=== PATIENT | male | born 1980 | race Caucasian/White ===

== ENCOUNTER 2017-10-23 22:53 | Inpatient (IN) | payer MEDICAID ==
[~2017-10-23] VITALS: Ht 152.4 cm; Wt 46.2 kg
[2017-10-23] MEDS ORDERED: PROPOFOL 100 ML IV PRN (23:21)
[2017-10-23] MEDS ORDERED: PLEASE ENTER ALLERGIES MC SCH (23:30)
[2017-10-23] MEDS ORDERED: PHARMACY MAY ADJ FOR RENAL FX MC SCH (23:30)
[2017-10-23] MEDS ORDERED: VANCOMYCIN PER PHARMACY MC PRN (23:30)
[2017-10-23] MEDS ORDERED: FENTANYL PF 100 MCG/2ML IVPush PRN (23:30)
[2017-10-23] MEDS ORDERED: LIDOCAINE-MPF 1%, 2ML ENDO PRN (23:30)
[2017-10-23] MEDS ORDERED: PLEASE ENTER HEIGHT AND WEIGHT MC SCH (23:30)
[2017-10-23 23:38] LABS: MICROSCOPIC NOT IND
[2017-10-23] MEDS: NOREPINEPHRINE 4 MG in SODIUM CHLORIDE 0.9% 246 ML IV PRN (23:39)
[2017-10-23 23:40] LABS: CULTURE INDICATED? NO
[2017-10-23] MEDS ORDERED: PHARMACOKINETIC MONITORING MC PRN (23:45)
[2017-10-23] MEDS: MIDAZOLAM HCL 25 MG in SODIUM CHLORIDE 0.9% 245 ML IV PRN (23:48)
[2017-10-24] MEDS: VANCOMYCIN 800 MG in SODIUM CHLORIDE 0.9% 250 ML IV ONE ×2 (00:30→00:37)
[2017-10-24] MEDS: MEROPENEM 500 MG in SODIUM CHLORIDE 0.9% 100 ML IV SCH ×3 (00:36→23:04)
[2017-10-24] MEDS: HEPARIN 5,000 UNITS/ML, 1ML SQ SCH ×3 (00:41→16:24)
[2017-10-24 01:00] VITALS: BP 105/70
[2017-10-24] MEDS ORDERED: SODIUM CHLORIDE 0.9% 1,000 ML IV SCH (03:30)
[2017-10-24] MEDS ORDERED: SODIUM CHLORIDE 0.9%, 500ML IVBOLUS ONE (03:30)
[2017-10-24 04:00] VITALS: BP 100/66
[2017-10-24 04:37] LABS: MEAN CORPUSCULAR HEMOGLOBIN 34.2 pg (27.5-34.5); MEAN CORPUSCULAR HGB CONC 33.8 g/dL (33.2-36.2); RED BLOOD COUNT 2.56 x10^6/uL (4.38-5.82); RED CELL DISTRIBUTION WIDTH 15.6 % (9.4-14.8)
[2017-10-24 04:40] LABS: ANION GAP 9 mmol/L (5-15); CHLORIDE 117 mmol/L (98-107); CREATININE 0.41 mg/dL (0.7-1.3)
[2017-10-24 04:54] LABS: CALCIUM 5.8 mg/dL (8.5-10.1)
[2017-10-24] MEDS ORDERED: D5%-0.45% NACL 1,000 ML IV SCH (05:30)
[2017-10-24] MEDS ORDERED: SODIUM CHLORIDE 0.9% 1,000ML IVBOLUS ONE ×2 (05:30→14:30)
[2017-10-24] MEDS ORDERED: CALCIUM GLUCONATE 9.2 MEQ in SODIUM CHLORIDE 0.9% 100 ML IV ONE (05:30)
[2017-10-24] MEDS ORDERED: MAGNESIUM SULFATE 3 GM in SODIUM CHLORIDE 0.9% 100 ML IV ONE (05:30)
[2017-10-24 06:01] LABS: MD YES
[2017-10-24 06:05] LABS: MEAN PLATELET VOLUME 9.4 fL (7.4-10.4); PLATELET COUNT 63 x10^3/uL (130-400)
[2017-10-24 06:08] LABS: BAND#(MANUAL) 1.92 x10^3/uL; BANDS%(MANUAL) 17 % (0-7); LYMPH#(MANUAL) 2.83 x10^3/uL (1-3.4); LYMPHS% (MANUAL) 25 % (22-44); METAMYELOCYTES# (MANUAL) 0.57 x10^3/uL (0-0); METAMYELOCYTES% (MANUAL) 5 % (0-1); MONOS#(MANUAL) 0.79 x10^3/uL (0.3-2.7); MONOS% (MANUAL) 7 % (2-9); NRBC % (MANUAL) 1 % (0-1); SEGS% (MANUAL) 46 % (42-75)
[2017-10-24 06:09] LABS: ANISOCYTOSIS 1+
[2017-10-24 06:10] LABS: <PLATELET ESTIMATE> DECREASED; <PLT MORPHOLOGY> NORMAL PLT MORPH; PMNS WITH VACUOLES 1+; SMUDGE CELLS 1+
[2017-10-24 06:11] LABS: POLYCHROMASIA 1+
[2017-10-24] MEDS: NOREPINEPHRINE 4 MG in SODIUM CHLORIDE 0.9% 246 ML IV PRN ×2 (06:28→23:05)
[2017-10-24] MEDS: PANTOPRAZOLE 40 MG IV IV SCH (08:37)
[2017-10-24] MEDS: OSELTAMIVIR 6 MG/ML ORAL SUSP PO SCH ×2 (08:37→21:17)
[2017-10-24] MEDS: HYDROCORTISONE 100 MG INJ. IV SCH ×2 (10:38→17:49)
[2017-10-24 10:45] LABS: ALANINE AMINOTRANSFERASE 38 U/L (12-78); ALBUMIN 1.4 g/dL (3.4-5.0); ANION GAP 9 mmol/L (5-15); CALCIUM 6.3 mg/dL (8.5-10.1); CHLORIDE 117 mmol/L (98-107); CREATININE 0.57 mg/dL (0.7-1.3)
[2017-10-24 10:48] LABS: ALKALINE PHOSPHATASE 29 U/L (45-117); BILIRUBIN,TOTAL 0.2 mg/dL (0.2-1.0); TOTAL PROTEIN 4.6 g/dL (6.4-8.2)
[2017-10-24] MEDS ORDERED: MAGNESIUM SULFATE PMX 2GM/50ML 50 ML IVPB ONE (11:30)
[2017-10-24] MEDS: VANCOMYCIN 700 MG in SODIUM CHLORIDE 0.9% 100 ML IV SCH (13:52)
[2017-10-24] MEDS: MIDAZOLAM HCL 25 MG in SODIUM CHLORIDE 0.9% 245 ML IV PRN (15:19)
[2017-10-25 00:08] LABS: MEAN CORPUSCULAR HEMOGLOBIN 33.7 pg (27.5-34.5); MEAN CORPUSCULAR HGB CONC 33.5 g/dL (33.2-36.2); MEAN CORPUSCULAR VOLUME 100.4 fL (81-97); MEAN PLATELET VOLUME 10.1 fL (7.4-10.4); PLATELET COUNT 67 x10^3/uL (130-400); RED BLOOD COUNT 2.64 x10^6/uL (4.38-5.82)
[2017-10-25 00:34] LABS: MD YES
[2017-10-25 00:36] LABS: BAND#(MANUAL) 10.62 x10^3/uL; BANDS%(MANUAL) 47 % (0-7); LYMPH#(MANUAL) 2.03 x10^3/uL (1-3.4); LYMPHS% (MANUAL) 9 % (22-44); METAMYELOCYTES# (MANUAL) 0.23 x10^3/uL (0-0); METAMYELOCYTES% (MANUAL) 1 % (0-1); MONOS% (MANUAL) 4 % (2-9); SEG#(MANUAL) 8.81 x10^3/uL (1.8-6.8); SEGS% (MANUAL) 39 % (42-75)
[2017-10-25 00:38] LABS: ANISOCYTOSIS 1+; POLYCHROMASIA 1+
[2017-10-25 00:39] LABS: <PLATELET ESTIMATE> DECREASED; <PLT MORPHOLOGY> NORMAL PLT MORPH; PMNS WITH VACUOLES 1+
[2017-10-25] MEDS: MIDAZOLAM HCL 25 MG in SODIUM CHLORIDE 0.9% 245 ML IV PRN ×3 (00:56→17:57)
[2017-10-25] MEDS: HYDROCORTISONE 100 MG INJ. IV SCH ×3 (00:56→17:57)
[2017-10-25] MEDS: HEPARIN 5,000 UNITS/ML, 1ML SQ SCH ×4 (00:59→22:15)
[2017-10-25] MEDS ORDERED: D5%-0.45% NACL 1,000 ML IV SCH (01:30)
[2017-10-25] MEDS: VANCOMYCIN 700 MG in SODIUM CHLORIDE 0.9% 100 ML IV SCH ×2 (01:31→15:50)
[2017-10-25] MEDS: D5%-0.45% NACL 1,000 ML IV SCH (02:26)
[2017-10-25 04:37] LABS: MEAN CORPUSCULAR HEMOGLOBIN 33.6 pg (27.5-34.5); MEAN CORPUSCULAR HGB CONC 33.1 g/dL (33.2-36.2); MEAN CORPUSCULAR VOLUME 101.3 fL (81-97); MEAN PLATELET VOLUME 10.3 fL (7.4-10.4); PLATELET COUNT 60 x10^3/uL (130-400); RED BLOOD COUNT 2.38 x10^6/uL (4.38-5.82); RED CELL DISTRIBUTION WIDTH 16.1 % (9.4-14.8)
[2017-10-25 04:44] LABS: ALANINE AMINOTRANSFERASE 31 U/L (12-78); ALBUMIN 1.3 g/dL (3.4-5.0); ANION GAP 9 mmol/L (5-15); CALCIUM 6.7 mg/dL (8.5-10.1); CHLORIDE 117 mmol/L (98-107); CREATININE 0.74 mg/dL (0.7-1.3)
[2017-10-25 04:46] LABS: ALKALINE PHOSPHATASE 39 U/L (45-117); BILIRUBIN,TOTAL 0.3 mg/dL (0.2-1.0); TOTAL PROTEIN 4.5 g/dL (6.4-8.2)
[2017-10-25 05:37] LABS: MD YES
[2017-10-25 05:39] LABS: LYMPH#(MANUAL) 1.54 x10^3/uL (1-3.4); LYMPHS% (MANUAL) 8 % (22-44); METAMYELOCYTES# (MANUAL) 0.19 x10^3/uL (0-0); METAMYELOCYTES% (MANUAL) 1 % (0-1); MONOS#(MANUAL) 0.97 x10^3/uL (0.3-2.7); MONOS% (MANUAL) 5 % (2-9)
[2017-10-25 05:40] VITALS: BP 98/70
[2017-10-25 05:40] LABS: BAND#(MANUAL) 8.69 x10^3/uL; BANDS%(MANUAL) 45 % (0-7); SEG#(MANUAL) 7.91 x10^3/uL (1.8-6.8); SEGS% (MANUAL) 41 % (42-75)
[2017-10-25 05:41] LABS: ANISOCYTOSIS 1+; PMNS WITH VACUOLES 1+
[2017-10-25 05:42] LABS: <PLATELET ESTIMATE> DECREASED; <PLT MORPHOLOGY> NORMAL PLT MORPH
[2017-10-25] MEDS: OSELTAMIVIR 6 MG/ML ORAL SUSP PO SCH ×2 (09:21→20:33)
[2017-10-25] MEDS: PANTOPRAZOLE 40 MG IV IV SCH (09:21)
[2017-10-25 10:50] LABS: HIT RESULT NEGATIVE (NEGATIVE)
[2017-10-25] MEDS: MEROPENEM 500 MG in SODIUM CHLORIDE 0.9% 100 ML IV SCH ×2 (11:41→22:16)
[2017-10-25] MEDS ORDERED: SODIUM CHLORIDE 0.9% 1,000ML IVBOLUS ONE (12:00)
[2017-10-25] MEDS: CARBAMAZEPINE 100 MG/5 ML NG SCH ×2 (15:50→20:33)
[2017-10-25] MEDS ORDERED: INSULIN ASPART 100 UNITS/ML, PEN SQ-INSULIN SCH (16:00)
[2017-10-25] MEDS: INSULIN ASPART 100 UNITS/ML, PEN SQ-INSULIN SCH ×2 (16:01→20:33)
[2017-10-26] MEDS: MIDAZOLAM HCL 25 MG in SODIUM CHLORIDE 0.9% 245 ML IV PRN ×3 (00:43→14:56)
[2017-10-26] MEDS: HYDROCORTISONE 100 MG INJ. IV SCH ×3 (02:04→17:29)
[2017-10-26] MEDS: INSULIN ASPART 100 UNITS/ML, PEN SQ-INSULIN SCH ×4 (02:06→21:26)
[2017-10-26 03:40] VITALS: BP 111/93
[2017-10-26 05:06] LABS: ANION GAP 8 mmol/L (5-15); CALCIUM 6.9 mg/dL (8.5-10.1); CHLORIDE 117 mmol/L (98-107); MEAN CORPUSCULAR HEMOGLOBIN 34.1 pg (27.5-34.5); MEAN CORPUSCULAR HGB CONC 33.6 g/dL (33.2-36.2); MEAN CORPUSCULAR VOLUME 101.3 fL (81-97); RED BLOOD COUNT 2.34 x10^6/uL (4.38-5.82); RED CELL DISTRIBUTION WIDTH 15.7 % (9.4-14.8)
[2017-10-26 05:34] LABS: CREATININE 0.87 mg/dL (0.7-1.3); FOLATE LEVEL 4.4 ng/mL (3.1-17.5); TRIGLYCERIDES 240 mg/dL (50-200)
[2017-10-26 05:55] LABS: MD YES; MEAN PLATELET VOLUME 10.8 fL (7.4-10.4); PLATELET COUNT 64 x10^3/uL (130-400)
[2017-10-26 05:57] LABS: LYMPH#(MANUAL) 1.76 x10^3/uL (1-3.4); LYMPHS% (MANUAL) 9 % (22-44); METAMYELOCYTES% (MANUAL) 1 % (0-1); MONOS#(MANUAL) 0.39 x10^3/uL (0.3-2.7); MONOS% (MANUAL) 2 % (2-9)
[2017-10-26 05:58] LABS: BANDS%(MANUAL) 25 % (0-7); SEG#(MANUAL) 12.35 x10^3/uL (1.8-6.8); SEGS% (MANUAL) 63 % (42-75)
[2017-10-26 05:59] LABS: ANISOCYTOSIS 1+
[2017-10-26 06:00] LABS: <PLATELET ESTIMATE> DECREASED; <PLT MORPHOLOGY> NORMAL PLT MORPH; PMNS WITH VACUOLES 1+
[2017-10-26] MEDS: HEPARIN 5,000 UNITS/ML, 1ML SQ SCH ×3 (07:30→23:29)
[2017-10-26] MEDS: PANTOPRAZOLE 40 MG IV IV SCH (08:36)
[2017-10-26] MEDS: CARBAMAZEPINE 100 MG/5 ML NG SCH ×3 (08:37→21:26)
[2017-10-26] MEDS: OSELTAMIVIR 6 MG/ML ORAL SUSP PO SCH ×2 (08:37→21:27)
[2017-10-26] MEDS ORDERED: POTASSIUM CHLORIDE 40 MEQ in SODIUM CHLORIDE 0.9% 100 ML IV ONE (09:00)
[2017-10-26] MEDS: MEROPENEM 500 MG in SODIUM CHLORIDE 0.9% 100 ML IV SCH ×2 (11:07→23:29)
[2017-10-26] MEDS ORDERED: VANCOMYCIN 700 MG in SODIUM CHLORIDE 0.9% 100 ML IV SCH (16:00)
[2017-10-26] MEDS ORDERED: FUROSEMIDE 20 MG/2 ML IV ONE (17:00)
[2017-10-26] MEDS: VALPROATE SODIUM 250 MG/5 ML ORAL SOLN PO/NG SCH ×2 (17:32→21:27)
[2017-10-27] MEDS: MIDAZOLAM HCL 25 MG in SODIUM CHLORIDE 0.9% 245 ML IV PRN ×2 (02:08→21:11)
[2017-10-27] MEDS: HYDROCORTISONE 100 MG INJ. IV SCH ×3 (02:08→16:09)
[2017-10-27 04:00] VITALS: BP 86/55
[2017-10-27] MEDS: INSULIN ASPART 100 UNITS/ML, PEN SQ-INSULIN SCH ×4 (04:30→21:05)
[2017-10-27 05:30] LABS: CHLORIDE 118 mmol/L (98-107)
[2017-10-27 05:41] LABS: ANION GAP 10 mmol/L (5-15); CALCIUM 7.2 mg/dL (8.5-10.1); CREATININE 0.95 mg/dL (0.7-1.3)
[2017-10-27 05:42] LABS: ALANINE AMINOTRANSFERASE 24 U/L (12-78); ALBUMIN 1.5 g/dL (3.4-5.0); ALKALINE PHOSPHATASE 59 U/L (45-117); BILIRUBIN,TOTAL 0.4 mg/dL (0.2-1.0); TOTAL PROTEIN 5.1 g/dL (6.4-8.2)
[2017-10-27 06:13] LABS: MD YES; MEAN CORPUSCULAR HGB CONC 33.8 g/dL (33.2-36.2); MEAN CORPUSCULAR VOLUME 100.6 fL (81-97); PLATELET COUNT 94 x10^3/uL (130-400); RED BLOOD COUNT 2.53 x10^6/uL (4.38-5.82)
[2017-10-27 06:16] LABS: BAND#(MANUAL) 4.32 x10^3/uL; BANDS%(MANUAL) 24 % (0-7); LYMPH#(MANUAL) 3.96 x10^3/uL (1-3.4); LYMPHS% (MANUAL) 22 % (22-44); METAMYELOCYTES# (MANUAL) 0.54 x10^3/uL (0-0); METAMYELOCYTES% (MANUAL) 3 % (0-1); MONOS#(MANUAL) 0.36 x10^3/uL (0.3-2.7); MONOS% (MANUAL) 2 % (2-9); NRBC % (MANUAL) 1 % (0-1); SEG#(MANUAL) 8.82 x10^3/uL (1.8-6.8); SEGS% (MANUAL) 49 % (42-75)
[2017-10-27 06:18] LABS: <PLATELET ESTIMATE> DECREASED; ANISOCYTOSIS 1+; LARGE PLATELETS 1+; SMUDGE CELLS 1+
[2017-10-27 06:19] LABS: POLYCHROMASIA 1+
[2017-10-27] MEDS: HEPARIN 5,000 UNITS/ML, 1ML SQ SCH (07:30)
[2017-10-27] MEDS: OSELTAMIVIR 6 MG/ML ORAL SUSP PO SCH ×2 (07:52→21:01)
[2017-10-27] MEDS: CARBAMAZEPINE 100 MG/5 ML NG SCH ×3 (07:52→21:01)
[2017-10-27] MEDS: PANTOPRAZOLE 40 MG IV IV SCH (07:52)
[2017-10-27] MEDS: VALPROATE SODIUM 250 MG/5 ML ORAL SOLN PO/NG SCH ×3 (07:52→21:01)
[2017-10-27] MEDS ORDERED: MIDAZOLAM 1 MG/ML, 2ML ONE ×2 (09:12→09:32)
[2017-10-27] MEDS: CEFAZOLIN PMX 2GM/50ML 50 ML IVPB SCH ×2 (09:29→17:46)
[2017-10-27] MEDS ORDERED: MIDAZOLAM 1 MG/ML, 2ML IVPush ONE ×2 (10:00)
[2017-10-27] MEDS ORDERED: LIDOCAINE 4% TOPICAL SOLUTION 50 ML ONE (10:41)
[2017-10-28] MEDS: HYDROCORTISONE 100 MG INJ. IV SCH ×3 (01:10→17:00)
[2017-10-28] MEDS: CEFAZOLIN PMX 2GM/50ML 50 ML IVPB SCH ×3 (01:10→16:59)
[2017-10-28] MEDS: INSULIN ASPART 100 UNITS/ML, PEN SQ-INSULIN SCH ×4 (03:45→21:17)
[2017-10-28 04:00] VITALS: BP 119/82
[2017-10-28 04:20] LABS: ANION GAP 9 mmol/L (5-15); CALCIUM 7.1 mg/dL (8.5-10.1); CHLORIDE 117 mmol/L (98-107)
[2017-10-28 04:21] LABS: CREATININE 0.97 mg/dL (0.7-1.3)
[2017-10-28 05:37] LABS: MD YES; MEAN CORPUSCULAR HEMOGLOBIN 34.2 pg (27.5-34.5); MEAN CORPUSCULAR HGB CONC 34.2 g/dL (33.2-36.2); MEAN PLATELET VOLUME 10.2 fL (7.4-10.4); PLATELET COUNT 98 x10^3/uL (130-400); RED CELL DISTRIBUTION WIDTH 16.1 % (9.4-14.8)
[2017-10-28 05:40] LABS: BAND#(MANUAL) 0.76 x10^3/uL; BANDS%(MANUAL) 5 % (0-7); LYMPH#(MANUAL) 3.17 x10^3/uL (1-3.4); LYMPHS% (MANUAL) 21 % (22-44); METAMYELOCYTES# (MANUAL) 0.15 x10^3/uL (0-0); METAMYELOCYTES% (MANUAL) 1 % (0-1); MONOS% (MANUAL) 4 % (2-9); MYELOCYTES# (MANUAL) 0.15 x10^3/uL (0-0); MYELOCYTES% (MANUAL) 1 % (0-0); SEG#(MANUAL) 10.27 x10^3/uL (1.8-6.8); SEGS% (MANUAL) 68 % (42-75)
[2017-10-28 05:41] LABS: ANISOCYTOSIS 1+
[2017-10-28 05:42] LABS: <PLATELET ESTIMATE> DECREASED; <PLT MORPHOLOGY> NORMAL PLT MORPH; POLYCHROMASIA 1+
[2017-10-28 05:43] LABS: SMUDGE CELLS 1+
[2017-10-28 06:09] VITALS: BP 119/82
[2017-10-28] MEDS ORDERED: MAGNESIUM SULFATE PMX 2GM/50ML 50 ML IV ONE (08:00)
[2017-10-28] MEDS ORDERED: POTASSIUM CHLORIDE 10% 40 MEQ/30 ML UDC PO ONE (08:00)
[2017-10-28] MEDS: CARBAMAZEPINE 100 MG/5 ML NG SCH ×3 (08:03→21:16)
[2017-10-28] MEDS: VALPROATE SODIUM 250 MG/5 ML ORAL SOLN PO/NG SCH ×3 (08:03→21:17)
[2017-10-28] MEDS: PANTOPRAZOLE 40 MG IV IV SCH (08:03)
[2017-10-28] MEDS: OSELTAMIVIR 6 MG/ML ORAL SUSP PO SCH ×2 (08:03→21:16)
[2017-10-29] MEDS: HYDROCORTISONE 100 MG INJ. IV SCH ×3 (00:55→16:26)
[2017-10-29] MEDS: CEFAZOLIN PMX 2GM/50ML 50 ML IVPB SCH ×3 (00:55→18:04)
[2017-10-29] MEDS: INSULIN ASPART 100 UNITS/ML, PEN SQ-INSULIN SCH ×4 (03:00→21:27)
[2017-10-29 04:00] VITALS: BP 132/90
[2017-10-29 05:18] LABS: MEAN CORPUSCULAR HEMOGLOBIN 33.6 pg (27.5-34.5); MEAN CORPUSCULAR HGB CONC 33.7 g/dL (33.2-36.2); MEAN CORPUSCULAR VOLUME 99.8 fL (81-97); MEAN PLATELET VOLUME 9.3 fL (7.4-10.4); PLATELET COUNT 121 x10^3/uL (130-400); RED BLOOD COUNT 2.56 x10^6/uL (4.38-5.82); RED CELL DISTRIBUTION WIDTH 15.5 % (9.4-14.8)
[2017-10-29 05:21] LABS: ANION GAP 8 mmol/L (5-15); CALCIUM 7.4 mg/dL (8.5-10.1); CHLORIDE 116 mmol/L (98-107); CREATININE 0.76 mg/dL (0.7-1.3)
[2017-10-29 05:22] LABS: TRIGLYCERIDES 249 mg/dL (50-200)
[2017-10-29 05:41] LABS: MD YES
[2017-10-29 05:42] LABS: BAND#(MANUAL) 0.14 x10^3/uL; BANDS%(MANUAL) 1 % (0-7); LYMPH#(MANUAL) 1.81 x10^3/uL (1-3.4); LYMPHS% (MANUAL) 13 % (22-44); MONOS#(MANUAL) 1.25 x10^3/uL (0.3-2.7); MONOS% (MANUAL) 9 % (2-9); SEGS% (MANUAL) 77 % (42-75)
[2017-10-29 05:46] LABS: <PLATELET ESTIMATE> DECREASED; <PLT MORPHOLOGY> NORMAL PLT MORPH; ANISOCYTOSIS 1+; POLYCHROMASIA 1+
[2017-10-29 05:49] LABS: SMUDGE CELLS 1+
[2017-10-29] MEDS ORDERED: FUROSEMIDE 20 MG/2 ML IV ONE (09:00)
[2017-10-29] MEDS: ESOMEPRAZOLE 40 MG IV IVPush SCH (09:15)
[2017-10-29] MEDS: CARBAMAZEPINE 100 MG/5 ML NG SCH ×3 (09:15→21:26)
[2017-10-29] MEDS: OSELTAMIVIR 6 MG/ML ORAL SUSP PO SCH ×2 (09:15→21:26)
[2017-10-29] MEDS: VALPROATE SODIUM 250 MG/5 ML ORAL SOLN PO/NG SCH ×3 (09:15→21:26)
[2017-10-30] MEDS: HYDROCORTISONE 100 MG INJ. IV SCH ×2 (01:03→08:05)
[2017-10-30] MEDS: CEFAZOLIN PMX 2GM/50ML 50 ML IVPB SCH ×3 (01:03→17:45)
[2017-10-30 04:00] VITALS: BP 116/72
[2017-10-30] MEDS: INSULIN ASPART 100 UNITS/ML, PEN SQ-INSULIN SCH ×4 (04:10→21:00)
[2017-10-30 04:30] LABS: ANION GAP 8 mmol/L (5-15); CALCIUM 7.6 mg/dL (8.5-10.1); CHLORIDE 114 mmol/L (98-107); CREATININE 0.73 mg/dL (0.7-1.3)
[2017-10-30 07:21] LABS: MEAN CORPUSCULAR HEMOGLOBIN 33.9 pg (27.5-34.5); MEAN CORPUSCULAR HGB CONC 34.4 g/dL (33.2-36.2); MEAN CORPUSCULAR VOLUME 98.4 fL (81-97); MEAN PLATELET VOLUME 8.8 fL (7.4-10.4); PLATELET COUNT 191 x10^3/uL (130-400); RED BLOOD COUNT 2.26 x10^6/uL (4.38-5.82); RED CELL DISTRIBUTION WIDTH 15.4 % (9.4-14.8)
[2017-10-30 07:24] LABS: HEMOGRAM NOTE RECHECKED
[2017-10-30 07:28] LABS: MD YES
[2017-10-30 07:31] LABS: BAND#(MANUAL) 0.36 x10^3/uL; BANDS%(MANUAL) 3 % (0-7); LYMPHS% (MANUAL) 21 % (22-44); MONOS#(MANUAL) 1.55 x10^3/uL (0.3-2.7); MONOS% (MANUAL) 13 % (2-9); MYELOCYTES# (MANUAL) 0.12 x10^3/uL (0-0); MYELOCYTES% (MANUAL) 1 % (0-0); REACTIVE LYMPHS # (MANUAL) 0.12 x10^3/uL (0-0); REACTIVE LYMPHS % (MANUAL) 1 % (0-0); SEG#(MANUAL) 7.26 x10^3/uL (1.8-6.8); SEGS% (MANUAL) 61 % (42-75)
[2017-10-30 07:32] LABS: ANISOCYTOSIS 1+
[2017-10-30 07:33] LABS: <PLATELET ESTIMATE> ADEQUATE; <PLT MORPHOLOGY> NORMAL PLT MORPH; BASOPHILLIC STIPPLING 1+
[2017-10-30] MEDS: CARBAMAZEPINE 100 MG/5 ML NG SCH ×3 (10:33→20:40)
[2017-10-30] MEDS: VALPROATE SODIUM 250 MG/5 ML ORAL SOLN PO/NG SCH ×4 (10:33→20:41)
[2017-10-30] MEDS: ESOMEPRAZOLE 40 MG IV IVPush SCH (12:41)
[2017-10-30 14:51] VITALS: BP 141/93
[2017-10-30 21:33] VITALS: BP 155/100
[2017-10-31] VITALS (7 sets, daily range): BP systolic 134–178; BP diastolic 85–107
[2017-10-31] MEDS: CEFAZOLIN PMX 2GM/50ML 50 ML IVPB SCH ×3 (00:59→17:26)
[2017-10-31] MEDS: INSULIN ASPART 100 UNITS/ML, PEN SQ-INSULIN SCH ×4 (03:00→21:00)
[2017-10-31 05:52] LABS: MEAN CORPUSCULAR HEMOGLOBIN 34.1 pg (27.5-34.5); MEAN CORPUSCULAR HGB CONC 33.9 g/dL (33.2-36.2); MEAN CORPUSCULAR VOLUME 100.5 fL (81-97); PLATELET COUNT 306 x10^3/uL (130-400); RED BLOOD COUNT 2.28 x10^6/uL (4.38-5.82); RED CELL DISTRIBUTION WIDTH 14.8 % (9.4-14.8)
[2017-10-31 05:53] LABS: ANION GAP 7 mmol/L (5-15); CALCIUM 7.9 mg/dL (8.5-10.1); CHLORIDE 112 mmol/L (98-107)
[2017-10-31 05:54] LABS: CREATININE 0.58 mg/dL (0.7-1.3)
[2017-10-31 06:37] LABS: BASOPHILS # (AUTO) 0.03 x10^3/uL (0-0.1); BASOPHILS % (AUTO) 0 % (0-1); EOSINOPHILS # (AUTO) 0.11 x10^3/uL (0-0.4); EOSINOPHILS % (AUTO) 1 % (1-7); LYMPHOCYTES # (AUTO) 5.02 x10^3/uL (1-3.4); LYMPHOCYTES % (AUTO) 33 % (22-44); MD SCAN; MEAN PLATELET VOLUME 8.2 fL (7.4-10.4); MONOCYTES # (AUTO) 1.76 x10^3/uL (0.2-0.8); MONOCYTES % (AUTO) 12 % (2-9); NEUTROPHILS # (AUTO) 8.47 x10^3/uL (1.8-6.8); NEUTROPHILS % (AUTO) 55 % (42-75)
[2017-10-31] MEDS: LABETALOL 5MG/ML, 20ML IVPush PRN (10:02)
[2017-10-31] MEDS: ESOMEPRAZOLE 40 MG IV IVPush SCH (10:08)
[2017-10-31] MEDS: VALPROATE SODIUM 250 MG/5 ML ORAL SOLN PO/NG SCH ×3 (10:30→21:13)
[2017-10-31] MEDS: CARBAMAZEPINE 100 MG/5 ML NG SCH ×3 (10:30→21:13)
[2017-10-31] MEDS ORDERED: PHEN125O PO (10:50)
[2017-10-31] MEDS ORDERED: CARB100O7 PO (10:50)
[2017-10-31] MEDS ORDERED: PHEN50TA PO (10:53)
[2017-10-31] MEDS ORDERED: VALP500S PO (10:54)
[2017-10-31] MEDS ORDERED: VALPROATE SODIUM PO SCH (16:00)
[2017-10-31] MEDS ORDERED: CARBAMAZEPINE 300 MG PO SCH (16:00)
[2017-10-31] MEDS ORDERED: LORazepam 2 MG/ML, 1ML ONE (18:05)
[2017-10-31] MEDS ORDERED: LORazepam 2 MG/ML, 1ML IVPush ONE (18:30)
[2017-10-31] MEDS: PHENYTOIN 50 MG TAB.CHEW PO SCH (21:14)
[2017-11-01] VITALS (7 sets, daily range): BP systolic 130–157; BP diastolic 85–108
[2017-11-01] MEDS: CEFAZOLIN PMX 2GM/50ML 50 ML IVPB SCH ×3 (00:36→16:16)
[2017-11-01] MEDS: INSULIN ASPART 100 UNITS/ML, PEN SQ-INSULIN SCH ×4 (03:00→21:00)
[2017-11-01 04:19] LABS: MEAN CORPUSCULAR HEMOGLOBIN 34.1 pg (27.5-34.5); MEAN CORPUSCULAR HGB CONC 34.6 g/dL (33.2-36.2); MEAN CORPUSCULAR VOLUME 98.6 fL (81-97); MEAN PLATELET VOLUME 7.2 fL (7.4-10.4); PLATELET COUNT 412 x10^3/uL (130-400); RED BLOOD COUNT 1.91 x10^6/uL (4.38-5.82); RED CELL DISTRIBUTION WIDTH 14.2 % (9.4-14.8)
[2017-11-01 04:30] LABS: ANION GAP 6 mmol/L (5-15); CALCIUM 7.6 mg/dL (8.5-10.1); CHLORIDE 113 mmol/L (98-107); CREATININE 0.58 mg/dL (0.7-1.3)
[2017-11-01 04:38] LABS: BASOPHILS # (AUTO) 0.12 x10^3/uL (0-0.1); BASOPHILS % (AUTO) 1 % (0-1); EOSINOPHILS # (AUTO) 0.07 x10^3/uL (0-0.4); EOSINOPHILS % (AUTO) 1 % (1-7); LYMPHOCYTES # (AUTO) 2.99 x10^3/uL (1-3.4); LYMPHOCYTES % (AUTO) 23 % (22-44); MD SCAN; MONOCYTES # (AUTO) 1.29 x10^3/uL (0.2-0.8); MONOCYTES % (AUTO) 10 % (2-9); NEUTROPHILS # (AUTO) 8.42 x10^3/uL (1.8-6.8); NEUTROPHILS % (AUTO) 65 % (42-75)
[2017-11-01] MEDS: ESOMEPRAZOLE 40 MG IV IVPush SCH (09:05)
[2017-11-01] MEDS: PHENYTOIN 50 MG TAB.CHEW PO SCH ×2 (09:06→22:03)
[2017-11-01] MEDS: VALPROATE SODIUM 250 MG/5 ML ORAL SOLN PO/NG SCH ×2 (09:06→16:16)
[2017-11-01] MEDS: CARBAMAZEPINE 100 MG/5 ML NG SCH ×2 (09:06→16:16)
[2017-11-02] VITALS (9 sets, daily range): BP systolic 158–181; BP diastolic 88–102
[2017-11-02] MEDS: VALPROATE SODIUM 250 MG/5 ML ORAL SOLN PO/NG SCH ×3 (01:22→15:44)
[2017-11-02] MEDS: CARBAMAZEPINE 100 MG/5 ML NG SCH ×3 (01:22→15:44)
[2017-11-02] MEDS: CEFAZOLIN PMX 2GM/50ML 50 ML IVPB SCH ×3 (01:22→15:44)
[2017-11-02] MEDS: INSULIN ASPART 100 UNITS/ML, PEN SQ-INSULIN SCH ×4 (03:30→21:00)
[2017-11-02 06:07] LABS: BASOPHILS # (AUTO) 0.05 x10^3/uL (0-0.1); BASOPHILS % (AUTO) 0 % (0-1); EOSINOPHILS % (AUTO) 1 % (1-7); LYMPHOCYTES # (AUTO) 3.05 x10^3/uL (1-3.4); LYMPHOCYTES % (AUTO) 20 % (22-44); MD NO; MEAN CORPUSCULAR HEMOGLOBIN 33.7 pg (27.5-34.5); MEAN CORPUSCULAR HGB CONC 34.8 g/dL (33.2-36.2); MEAN CORPUSCULAR VOLUME 96.7 fL (81-97); MEAN PLATELET VOLUME 7.3 fL (7.4-10.4); MONOCYTES # (AUTO) 1.17 x10^3/uL (0.2-0.8); MONOCYTES % (AUTO) 8 % (2-9); NEUTROPHILS # (AUTO) 10.65 x10^3/uL (1.8-6.8); NEUTROPHILS % (AUTO) 71 % (42-75); PLATELET COUNT 442 x10^3/uL (130-400); RED BLOOD COUNT 2.46 x10^6/uL (4.38-5.82); RED CELL DISTRIBUTION WIDTH 14.7 % (9.4-14.8)
[2017-11-02 06:16] LABS: CHLORIDE 110 mmol/L (98-107)
[2017-11-02 06:25] LABS: ANION GAP 5 mmol/L (5-15); CALCIUM 7.5 mg/dL (8.5-10.1); CREATININE 0.55 mg/dL (0.7-1.3)
[2017-11-02] MEDS: PHENYTOIN 50 MG TAB.CHEW PO SCH ×2 (08:31→21:42)
[2017-11-02] MEDS: ESOMEPRAZOLE 40 MG IV IVPush SCH (08:31)
[2017-11-02] MEDS: LABETALOL 5MG/ML, 20ML IVPush PRN ×2 (11:59→22:02)
[2017-11-03] MEDS: VALPROATE SODIUM 250 MG/5 ML ORAL SOLN PO/NG SCH ×3 (00:32→16:25)
[2017-11-03] MEDS: CARBAMAZEPINE 100 MG/5 ML NG SCH ×3 (00:33→16:25)
[2017-11-03] MEDS: CEFAZOLIN PMX 2GM/50ML 50 ML IVPB SCH ×2 (00:33→09:59)
[2017-11-03] MEDS: LABETALOL 5MG/ML, 20ML IVPush PRN ×2 (01:12→16:24)
[2017-11-03 01:52] VITALS: BP 166/102
[2017-11-03] MEDS: INSULIN ASPART 100 UNITS/ML, PEN SQ-INSULIN SCH ×4 (03:00→21:00)
[2017-11-03 07:38] VITALS: BP 160/102
[2017-11-03 07:38] LABS: MEAN CORPUSCULAR HGB CONC 34.8 g/dL (33.2-36.2); MEAN CORPUSCULAR VOLUME 97.5 fL (81-97); PLATELET COUNT 488 x10^3/uL (130-400); RED BLOOD COUNT 2.42 x10^6/uL (4.38-5.82); RED CELL DISTRIBUTION WIDTH 14.4 % (9.4-14.8)
[2017-11-03 07:48] LABS: ANION GAP 7 mmol/L (5-15); CALCIUM 7.5 mg/dL (8.5-10.1); CHLORIDE 107 mmol/L (98-107); CREATININE 0.53 mg/dL (0.7-1.3)
[2017-11-03 08:32] LABS: BASOPHILS # (AUTO) 0.05 x10^3/uL (0-0.1); BASOPHILS % (AUTO) 0 % (0-1); EOSINOPHILS # (AUTO) 0.05 x10^3/uL (0-0.4); EOSINOPHILS % (AUTO) 0 % (1-7); LYMPHOCYTES % (AUTO) 14 % (22-44); MD SCAN; MONOCYTES # (AUTO) 1.19 x10^3/uL (0.2-0.8); MONOCYTES % (AUTO) 7 % (2-9); NEUTROPHILS # (AUTO) 14.41 x10^3/uL (1.8-6.8); NEUTROPHILS % (AUTO) 79 % (42-75)
[2017-11-03] MEDS: ESOMEPRAZOLE 40 MG IV IVPush SCH (10:00)
[2017-11-03] MEDS: PHENYTOIN 50 MG TAB.CHEW PO SCH ×2 (10:00→22:04)
[2017-11-03] MEDS ORDERED: ENALAPRILAT 1.25 MG/ML, 2ML IV PRN (13:00)
[2017-11-03] MEDS: hydrALAzine 20 MG/ML, 1ML IV PRN (13:24)
[2017-11-03 14:09] VITALS: BP 184/100
[2017-11-03] MEDS ORDERED: VANCOMYCIN PER PHARMACY MC PRN (16:30)
[2017-11-03] MEDS ORDERED: FUROSEMIDE 40 MG/4 ML IV ONE (16:30)
[2017-11-03] MEDS: CEFTRIAXONE PMX 1GM/50ML 50 ML IV SCH (16:44)
[2017-11-03] MEDS: VANCOMYCIN PMX 1GM/200ML 200 ML IVPB SCH (18:25)
[2017-11-03 19:32] VITALS: BP 139/92
[2017-11-03] MEDS ORDERED: PHARMACOKINETIC MONITORING MC PRN (21:00)
[2017-11-03] MEDS ORDERED: PHARMACOKINETIC CONSULTATION MC ONE (21:00)
[2017-11-03] MEDS: METOPROLOL TARTRATE 25 MG TABLET PO SCH (22:04)
[2017-11-04] MEDS: VALPROATE SODIUM 250 MG/5 ML ORAL SOLN PO/NG SCH ×4 (00:41→21:38)
[2017-11-04] MEDS: CARBAMAZEPINE 100 MG/5 ML NG SCH ×4 (00:41→21:37)
[2017-11-04 01:43] VITALS: BP 143/93
[2017-11-04] MEDS: INSULIN ASPART 100 UNITS/ML, PEN SQ-INSULIN SCH ×4 (03:00→21:00)
[2017-11-04 06:09] LABS: BASOPHILS # (AUTO) 0.07 x10^3/uL (0-0.1); BASOPHILS % (AUTO) 0 % (0-1); EOSINOPHILS # (AUTO) 0.03 x10^3/uL (0-0.4); EOSINOPHILS % (AUTO) 0 % (1-7); LYMPHOCYTES # (AUTO) 2.11 x10^3/uL (1-3.4); LYMPHOCYTES % (AUTO) 12 % (22-44); MD NO; MEAN CORPUSCULAR HEMOGLOBIN 33.6 pg (27.5-34.5); MEAN CORPUSCULAR HGB CONC 34.1 g/dL (33.2-36.2); MEAN CORPUSCULAR VOLUME 98.6 fL (81-97); MEAN PLATELET VOLUME 7.5 fL (7.4-10.4); MONOCYTES # (AUTO) 1.18 x10^3/uL (0.2-0.8); MONOCYTES % (AUTO) 7 % (2-9); NEUTROPHILS # (AUTO) 13.96 x10^3/uL (1.8-6.8); NEUTROPHILS % (AUTO) 80 % (42-75); PLATELET COUNT 487 x10^3/uL (130-400); RED BLOOD COUNT 2.45 x10^6/uL (4.38-5.82); RED CELL DISTRIBUTION WIDTH 14.2 % (9.4-14.8)
[2017-11-04 06:18] LABS: ANION GAP 8 mmol/L (5-15); CALCIUM 7.2 mg/dL (8.5-10.1); CHLORIDE 103 mmol/L (98-107); CREATININE 0.66 mg/dL (0.7-1.3)
[2017-11-04 07:30] VITALS: BP 178/99
[2017-11-04] MEDS: MORPHINE SULFATE 4 MG/ML, 1ML IVPush PRN ×2 (08:02→12:55)
[2017-11-04] MEDS: METOPROLOL TARTRATE 25 MG TABLET PO SCH ×2 (08:02→21:38)
[2017-11-04] MEDS: ESOMEPRAZOLE 40 MG IV IVPush SCH (09:47)
[2017-11-04] MEDS: PHENYTOIN 50 MG TAB.CHEW PO SCH ×2 (09:48→21:39)
[2017-11-04 09:52] VITALS: BP 187/119
[2017-11-04] MEDS: hydrALAzine 20 MG/ML, 1ML IV PRN (09:52)
[2017-11-04 11:31] VITALS: BP 167/112
[2017-11-04] MEDS: LABETALOL 5MG/ML, 20ML IVPush PRN (11:33)
[2017-11-04] MEDS ORDERED: LIDOCAINE 1%, 20ML ONE (11:41)
[2017-11-04 12:29] VITALS: BP 129/85
[2017-11-04 12:54] VITALS: BP 147/95
[2017-11-04] MEDS: CEFTRIAXONE PMX 1GM/50ML 50 ML IV SCH (16:34)
[2017-11-04] MEDS: VANCOMYCIN PMX 1GM/200ML 200 ML IVPB SCH (18:10)
[2017-11-05] MEDS: INSULIN ASPART 100 UNITS/ML, PEN SQ-INSULIN SCH ×5 (03:00→20:18)
[2017-11-05 04:54] LABS: MEAN CORPUSCULAR HEMOGLOBIN 33.8 pg (27.5-34.5); MEAN CORPUSCULAR VOLUME 99.5 fL (81-97); MEAN PLATELET VOLUME 7.9 fL (7.4-10.4); PLATELET COUNT 443 x10^3/uL (130-400); RED BLOOD COUNT 2.29 x10^6/uL (4.38-5.82); RED CELL DISTRIBUTION WIDTH 14.7 % (9.4-14.8)
[2017-11-05 05:09] LABS: ALBUMIN 1.5 g/dL (3.4-5.0); ANION GAP 7 mmol/L (5-15); CALCIUM 7.4 mg/dL (8.5-10.1); CHLORIDE 103 mmol/L (98-107)
[2017-11-05 05:13] LABS: ALKALINE PHOSPHATASE 37 U/L (45-117); BILIRUBIN,TOTAL 0.5 mg/dL (0.2-1.0); CREATININE 0.58 mg/dL (0.7-1.3); TOTAL PROTEIN 5.6 g/dL (6.4-8.2)
[2017-11-05 05:14] LABS: BASOPHILS # (AUTO) 0.03 x10^3/uL (0-0.1); BASOPHILS % (AUTO) 0 % (0-1); EOSINOPHILS # (AUTO) 0.03 x10^3/uL (0-0.4); EOSINOPHILS % (AUTO) 0 % (1-7); LYMPHOCYTES # (AUTO) 2.22 x10^3/uL (1-3.4); LYMPHOCYTES % (AUTO) 10 % (22-44); MD SCAN; MONOCYTES # (AUTO) 1.31 x10^3/uL (0.2-0.8); MONOCYTES % (AUTO) 6 % (2-9); NEUTROPHILS # (AUTO) 18.94 x10^3/uL (1.8-6.8); NEUTROPHILS % (AUTO) 84 % (42-75)
[2017-11-05 05:31] LABS: ALANINE AMINOTRANSFERASE 6 U/L (12-78)
[2017-11-05] MEDS: MORPHINE SULFATE 4 MG/ML, 1ML IVPush PRN ×2 (07:14→22:14)
[2017-11-05] MEDS ORDERED: LORazepam 2 MG/ML, 1ML ONE (08:42)
[2017-11-05] MEDS: PHENYTOIN 50 MG TAB.CHEW PO SCH ×2 (09:20→20:19)
[2017-11-05] MEDS: VALPROATE SODIUM 250 MG/5 ML ORAL SOLN PO/NG SCH ×3 (09:20→20:12)
[2017-11-05] MEDS: METOPROLOL TARTRATE 25 MG TABLET PO SCH (09:20)
[2017-11-05] MEDS: ESOMEPRAZOLE 40 MG IV IVPush SCH (09:21)
[2017-11-05] MEDS: CARBAMAZEPINE 100 MG/5 ML NG SCH ×3 (09:21→20:12)
[2017-11-05] MEDS ORDERED: MAGNESIUM SULFATE PMX 4GM/100M 100 ML IV ONE (10:00)
[2017-11-05] MEDS ORDERED: FILTER 0.22 MICRON IV ONE (13:00)
[2017-11-05] MEDS ORDERED: PHENYTOIN SODIUM 600 MG in SODIUM CHLORIDE 0.9% 100 ML IV ONE (13:00)
[2017-11-05] MEDS: CEFTRIAXONE PMX 1GM/50ML 50 ML IV SCH (17:04)
[2017-11-05] MEDS: METOPROLOL TARTRATE 50 MG TABLET PO SCH (20:13)
[2017-11-06 04:22] LABS: ANION GAP 8 mmol/L (5-15); CALCIUM 7.3 mg/dL (8.5-10.1); CHLORIDE 104 mmol/L (98-107); MEAN CORPUSCULAR HEMOGLOBIN 33.4 pg (27.5-34.5); MEAN CORPUSCULAR HGB CONC 33.4 g/dL (33.2-36.2); MEAN CORPUSCULAR VOLUME 99.9 fL (81-97); MEAN PLATELET VOLUME 8.1 fL (7.4-10.4); PLATELET COUNT 331 x10^3/uL (130-400); RED BLOOD COUNT 2.21 x10^6/uL (4.38-5.82)
[2017-11-06 04:24] LABS: CREATININE 0.58 mg/dL (0.7-1.3)
[2017-11-06 04:58] LABS: BASOPHILS # (AUTO) 0.05 x10^3/uL (0-0.1); BASOPHILS % (AUTO) 0 % (0-1); EOSINOPHILS # (AUTO) 0.04 x10^3/uL (0-0.4); EOSINOPHILS % (AUTO) 0 % (1-7); LYMPHOCYTES # (AUTO) 2.09 x10^3/uL (1-3.4); LYMPHOCYTES % (AUTO) 14 % (22-44); MD SCAN; MONOCYTES # (AUTO) 1.19 x10^3/uL (0.2-0.8); MONOCYTES % (AUTO) 8 % (2-9); NEUTROPHILS # (AUTO) 11.46 x10^3/uL (1.8-6.8); NEUTROPHILS % (AUTO) 77 % (42-75)
[2017-11-06] MEDS: INSULIN ASPART 100 UNITS/ML, PEN SQ-INSULIN SCH ×3 (09:00→22:28)
[2017-11-06] MEDS: VALPROATE SODIUM 250 MG/5 ML ORAL SOLN PO/NG SCH ×3 (09:34→22:27)
[2017-11-06] MEDS: PHENYTOIN 50 MG TAB.CHEW PO SCH ×2 (09:34→23:19)
[2017-11-06] MEDS: CARBAMAZEPINE 100 MG/5 ML NG SCH ×3 (09:35→22:28)
[2017-11-06] MEDS: METOPROLOL TARTRATE 50 MG TABLET PO SCH ×2 (09:35→21:46)
[2017-11-06] MEDS: ESOMEPRAZOLE 40 MG IV IVPush SCH (09:35)
[2017-11-06 14:52] VITALS: BP 137/87
[2017-11-06] MEDS: CEFTRIAXONE PMX 1GM/50ML 50 ML IV SCH (17:23)
[2017-11-06 21:00] VITALS: BP 171/90
[2017-11-07] VITALS (10 sets, daily range): BP systolic 128–170; BP diastolic 74–105
[2017-11-07] MEDS: INSULIN ASPART 100 UNITS/ML, PEN SQ-INSULIN SCH ×4 (04:15→20:53)
[2017-11-07 05:45] LABS: ANION GAP 6 mmol/L (5-15); CALCIUM 7.7 mg/dL (8.5-10.1); CHLORIDE 105 mmol/L (98-107); CREATININE 0.67 mg/dL (0.7-1.3)
[2017-11-07 06:01] LABS: MEAN CORPUSCULAR HEMOGLOBIN 33.9 pg (27.5-34.5); MEAN CORPUSCULAR HGB CONC 33.9 g/dL (33.2-36.2); MEAN CORPUSCULAR VOLUME 99.9 fL (81-97); MEAN PLATELET VOLUME 7.9 fL (7.4-10.4); PLATELET COUNT 289 x10^3/uL (130-400); RED BLOOD COUNT 2.05 x10^6/uL (4.38-5.82); RED CELL DISTRIBUTION WIDTH 14.2 % (9.4-14.8)
[2017-11-07 06:29] LABS: BASOPHILS # (AUTO) 0.07 x10^3/uL (0-0.1); BASOPHILS % (AUTO) 1 % (0-1); EOSINOPHILS # (AUTO) 0.01 x10^3/uL (0-0.4); EOSINOPHILS % (AUTO) 0 % (1-7); LYMPHOCYTES # (AUTO) 2.66 x10^3/uL (1-3.4); LYMPHOCYTES % (AUTO) 24 % (22-44); MD SCAN; MONOCYTES # (AUTO) 1.19 x10^3/uL (0.2-0.8); MONOCYTES % (AUTO) 11 % (2-9); NEUTROPHILS # (AUTO) 7.12 x10^3/uL (1.8-6.8); NEUTROPHILS % (AUTO) 64 % (42-75)
[2017-11-07] MEDS: CARBAMAZEPINE 100 MG/5 ML NG SCH ×3 (09:00→20:42)
[2017-11-07] MEDS: PHENYTOIN SODIUM 50 MG/ML, 2ML IVPush SCH ×2 (09:00→20:41)
[2017-11-07] MEDS: ESOMEPRAZOLE 40 MG IV IVPush SCH (09:00)
[2017-11-07] MEDS: METOPROLOL TARTRATE 50 MG TABLET PO SCH ×2 (09:00→20:42)
[2017-11-07] MEDS: VALPROATE SODIUM 500 MG in SODIUM CHLORIDE 0.9% 100 ML IV SCH ×2 (09:00→17:32)
[2017-11-07] MEDS: D5%-0.9% NACL+KCL 20MEQ 1,000 ML IV SCH (10:00)
[2017-11-07] MEDS ORDERED: VALPROATE SODIUM 100 MG/ML, 5ML IV SCH (10:00)
[2017-11-07] MEDS ORDERED: BISACODYL 10 MG SUPP PR PRN (10:30)
[2017-11-07 11:39] LABS: CELLS COUNTED 232
[2017-11-07 12:14] LABS: ALBUMIN 1.5 g/dL (3.4-5.0)
[2017-11-07] MEDS: CEFTRIAXONE PMX 1GM/50ML 50 ML IV SCH (16:34)
[2017-11-08] MEDS: D5%-0.9% NACL+KCL 20MEQ 1,000 ML IV SCH (02:39)
[2017-11-08] MEDS: VALPROATE SODIUM 500 MG in SODIUM CHLORIDE 0.9% 100 ML IV SCH ×3 (02:39→18:25)
[2017-11-08 02:42] VITALS: BP 150/95
[2017-11-08] MEDS: INSULIN ASPART 100 UNITS/ML, PEN SQ-INSULIN SCH ×4 (03:00→21:00)
[2017-11-08 06:14] LABS: ANION GAP 6 mmol/L (5-15); CALCIUM 7.7 mg/dL (8.5-10.1); CHLORIDE 109 mmol/L (98-107); CREATININE 0.71 mg/dL (0.7-1.3)
[2017-11-08 06:22] LABS: MEAN CORPUSCULAR HEMOGLOBIN 33.2 pg (27.5-34.5); MEAN CORPUSCULAR HGB CONC 34.6 g/dL (33.2-36.2); MEAN CORPUSCULAR VOLUME 95.8 fL (81-97); MEAN PLATELET VOLUME 8.2 fL (7.4-10.4); PLATELET COUNT 277 x10^3/uL (130-400); RED BLOOD COUNT 2.75 x10^6/uL (4.38-5.82); RED CELL DISTRIBUTION WIDTH 16.2 % (9.4-14.8)
[2017-11-08 06:23] LABS: BASOPHILS # (AUTO) 0.04 x10^3/uL (0-0.1); BASOPHILS % (AUTO) 1 % (0-1); EOSINOPHILS # (AUTO) 0.07 x10^3/uL (0-0.4); EOSINOPHILS % (AUTO) 1 % (1-7); LYMPHOCYTES # (AUTO) 2.57 x10^3/uL (1-3.4); LYMPHOCYTES % (AUTO) 29 % (22-44); MONOCYTES # (AUTO) 1.22 x10^3/uL (0.2-0.8); MONOCYTES % (AUTO) 14 % (2-9); NEUTROPHILS # (AUTO) 4.96 x10^3/uL (1.8-6.8); NEUTROPHILS % (AUTO) 56 % (42-75)
[2017-11-08 06:28] LABS: MD NO
[2017-11-08 07:25] VITALS: BP 165/87
[2017-11-08] MEDS: ESOMEPRAZOLE 40 MG IV IVPush SCH (09:02)
[2017-11-08] MEDS: PHENYTOIN SODIUM 50 MG/ML, 2ML IVPush SCH ×2 (09:03→22:06)
[2017-11-08] MEDS: CARBAMAZEPINE 100 MG/5 ML NG SCH ×3 (09:03→21:00)
[2017-11-08] MEDS: METOPROLOL TARTRATE 50 MG TABLET PO SCH ×2 (09:03→21:00)
[2017-11-08] MEDS ORDERED: LIDOCAINE GEL 2%, 5ML ONE (15:21)
[2017-11-08] MEDS: CEFTRIAXONE PMX 1GM/50ML 50 ML IV SCH (16:42)
[2017-11-08] MEDS: MORPHINE SULFATE 4 MG/ML, 1ML IVPush PRN (17:34)
[2017-11-08] MEDS: METOPROLOL 1 MG/ML, 5ML IVPush PRN (20:11)
[2017-11-08 20:57] VITALS: BP 140/87
[2017-11-09 01:31] VITALS: BP 138/80
[2017-11-09] MEDS: VALPROATE SODIUM 500 MG in SODIUM CHLORIDE 0.9% 100 ML IV SCH ×3 (02:54→18:42)
[2017-11-09] MEDS: INSULIN ASPART 100 UNITS/ML, PEN SQ-INSULIN SCH ×4 (03:00→21:00)
[2017-11-09] MEDS: METOPROLOL 1 MG/ML, 5ML IVPush PRN ×2 (05:31→18:42)
[2017-11-09 06:08] LABS: BASOPHILS # (AUTO) 0.08 x10^3/uL (0-0.1); BASOPHILS % (AUTO) 1 % (0-1); EOSINOPHILS # (AUTO) 0.03 x10^3/uL (0-0.4); EOSINOPHILS % (AUTO) 0 % (1-7); LYMPHOCYTES # (AUTO) 3.08 x10^3/uL (1-3.4); LYMPHOCYTES % (AUTO) 39 % (22-44); MD NO; MEAN CORPUSCULAR HEMOGLOBIN 32.9 pg (27.5-34.5); MEAN CORPUSCULAR HGB CONC 34.1 g/dL (33.2-36.2); MEAN CORPUSCULAR VOLUME 96.3 fL (81-97); MEAN PLATELET VOLUME 8.3 fL (7.4-10.4); MONOCYTES # (AUTO) 0.96 x10^3/uL (0.2-0.8); MONOCYTES % (AUTO) 12 % (2-9); NEUTROPHILS # (AUTO) 3.82 x10^3/uL (1.8-6.8); NEUTROPHILS % (AUTO) 48 % (42-75); PLATELET COUNT 252 x10^3/uL (130-400); RED BLOOD COUNT 2.49 x10^6/uL (4.38-5.82); RED CELL DISTRIBUTION WIDTH 15.7 % (9.4-14.8)
[2017-11-09 06:13] LABS: CHLORIDE 110 mmol/L (98-107)
[2017-11-09 06:25] LABS: ANION GAP 10 mmol/L (5-15); CALCIUM 7.6 mg/dL (8.5-10.1); CREATININE 0.58 mg/dL (0.7-1.3)
[2017-11-09 08:12] VITALS: BP 161/50
[2017-11-09] MEDS: CARBAMAZEPINE 100 MG/5 ML NG SCH ×3 (09:00→21:00)
[2017-11-09] MEDS: METOPROLOL TARTRATE 50 MG TABLET PO SCH ×2 (09:00→21:00)
[2017-11-09] MEDS: PHENYTOIN SODIUM 50 MG/ML, 2ML IVPush SCH ×2 (09:18→21:54)
[2017-11-09] MEDS: ESOMEPRAZOLE 40 MG IV IVPush SCH (10:10)
[2017-11-09] MEDS: ALBUMIN HUMAN 25% 50 ML IV SCH ×2 (10:10→17:36)
[2017-11-09] MEDS: D5%-0.9% NACL 1,000 ML IV SCH (12:56)
[2017-11-09] MEDS ORDERED: GLUCAGON 1 MG IM PRN (13:00)
[2017-11-09] MEDS ORDERED: CLINDAMYCIN PMX 900MG/50ML 50 ML IV ONE (13:00)
[2017-11-09] MEDS ORDERED: DEXTROSE 4 GM TAB.CHEW PO PRN (13:00)
[2017-11-09] MEDS ORDERED: DEXTROSE 50%, 50ML SYRINGE IVPush PRN (13:00)
[2017-11-09 16:29] VITALS: BP 147/84
[2017-11-09] MEDS: CEFTRIAXONE PMX 1GM/50ML 50 ML IV SCH (16:35)
[2017-11-09 21:40] VITALS: BP 166/111
[2017-11-09] MEDS: SODIUM CHLORIDE FLUSH 10ML SYR IVF SCH (21:53)
[2017-11-10] MEDS: ALBUMIN HUMAN 25% 50 ML IV SCH ×2 (01:59→08:11)
[2017-11-10 02:30] VITALS: BP 197/96
[2017-11-10] MEDS: VALPROATE SODIUM 500 MG in SODIUM CHLORIDE 0.9% 100 ML IV SCH ×3 (02:42→18:43)
[2017-11-10] MEDS: INSULIN ASPART 100 UNITS/ML, PEN SQ-INSULIN SCH ×4 (03:00→21:00)
[2017-11-10] MEDS: METOPROLOL 1 MG/ML, 5ML IVPush PRN (04:26)
[2017-11-10] MEDS: D5%-0.9% NACL 1,000 ML IV SCH (06:14)
[2017-11-10 06:28] LABS: INTERNATIONAL NORMALIZED RATIO 1.76 (0.93-1.1); PROTHROMBIN TIME 18.1 Seconds (9.6-11.5)
[2017-11-10 06:31] LABS: % IRON SATURATION 36 % (20-55); ANION GAP 8 mmol/L (5-15); CALCIUM 7.4 mg/dL (8.5-10.1); CHLORIDE 111 mmol/L (98-107); CREATININE 0.51 mg/dL (0.7-1.3); IRON LEVEL 41 mcg/dL (65-175); TOTAL IRON BINDING CAPACITY 115 mcg/dL (250-450)
[2017-11-10 06:32] LABS: BASOPHILS # (AUTO) 0.05 x10^3/uL (0-0.1); BASOPHILS % (AUTO) 1 % (0-1); EOSINOPHILS # (AUTO) 0.03 x10^3/uL (0-0.4); EOSINOPHILS % (AUTO) 0 % (1-7); LYMPHOCYTES # (AUTO) 2.19 x10^3/uL (1-3.4); LYMPHOCYTES % (AUTO) 35 % (22-44); MD NO; MEAN CORPUSCULAR HGB CONC 34.2 g/dL (33.2-36.2); MEAN CORPUSCULAR VOLUME 96.5 fL (81-97); MEAN PLATELET VOLUME 7.9 fL (7.4-10.4); MONOCYTES # (AUTO) 0.74 x10^3/uL (0.2-0.8); MONOCYTES % (AUTO) 12 % (2-9); NEUTROPHILS # (AUTO) 3.26 x10^3/uL (1.8-6.8); NEUTROPHILS % (AUTO) 52 % (42-75); PLATELET COUNT 230 x10^3/uL (130-400); RED CELL DISTRIBUTION WIDTH 15.2 % (9.4-14.8)
[2017-11-10 06:36] LABS: TRANSFERRIN 91 mg/dL (200-360)
[2017-11-10 07:29] VITALS: BP 197/96
[2017-11-10] MEDS ORDERED: CLINDAMYCIN PMX 900MG/50ML 50 ML IV ONE (08:00)
[2017-11-10] MEDS: CARBAMAZEPINE 100 MG/5 ML NG SCH ×3 (08:00→22:23)
[2017-11-10] MEDS: METOPROLOL TARTRATE 50 MG TABLET PO SCH ×2 (08:04→22:13)
[2017-11-10] MEDS: ESOMEPRAZOLE 40 MG IV IVPush SCH (08:11)
[2017-11-10] MEDS: SODIUM CHLORIDE FLUSH 10ML SYR IVF SCH ×2 (08:12→22:12)
[2017-11-10] MEDS: PHENYTOIN SODIUM 50 MG/ML, 2ML IVPush SCH ×2 (08:12→22:13)
[2017-11-10] MEDS ORDERED: hydrALAzine 20 MG/ML, 1ML IV PRN (09:30)
[2017-11-10] MEDS ORDERED: MAGNESIUM SULFATE PMX 2GM/50ML 50 ML IV ONE (09:30)
[2017-11-10] MEDS ORDERED: MIDAZOLAM 1 MG/ML, 5ML ONE (13:28)
[2017-11-10] MEDS ORDERED: FENTANYL PF 100 MCG/2ML ONE (13:28)
[2017-11-10] MEDS ORDERED: CEFAZOLIN PMX 1GM/50ML 50 ML ONE (13:55)
[2017-11-10] MEDS ORDERED: CEFAZOLIN PMX 1GM/50ML 50 ML IV ONE (14:00)
[2017-11-10] MEDS: CEFTRIAXONE PMX 1GM/50ML 50 ML IV SCH (17:06)
[2017-11-10 21:56] VITALS: BP 191/103
[2017-11-10] MEDS: MORPHINE SULFATE 4 MG/ML, 1ML IVPush PRN (21:58)
[2017-11-11 01:53] VITALS: BP 164/100
[2017-11-11] MEDS: MORPHINE SULFATE 4 MG/ML, 1ML IVPush PRN (02:09)
[2017-11-11] MEDS: VALPROATE SODIUM 500 MG in SODIUM CHLORIDE 0.9% 100 ML IV SCH ×3 (02:09→22:10)
[2017-11-11] MEDS: INSULIN ASPART 100 UNITS/ML, PEN SQ-INSULIN SCH ×4 (03:00→21:00)
[2017-11-11 05:55] LABS: BASOPHILS # (AUTO) 0.04 x10^3/uL (0-0.1); BASOPHILS % (AUTO) 1 % (0-1); EOSINOPHILS # (AUTO) 0.03 x10^3/uL (0-0.4); EOSINOPHILS % (AUTO) 0 % (1-7); LYMPHOCYTES # (AUTO) 3.08 x10^3/uL (1-3.4); LYMPHOCYTES % (AUTO) 41 % (22-44); MEAN CORPUSCULAR HEMOGLOBIN 32.8 pg (27.5-34.5); MEAN CORPUSCULAR HGB CONC 34.3 g/dL (33.2-36.2); MEAN CORPUSCULAR VOLUME 95.7 fL (81-97); MEAN PLATELET VOLUME 7.6 fL (7.4-10.4); MONOCYTES # (AUTO) 0.61 x10^3/uL (0.2-0.8); MONOCYTES % (AUTO) 8 % (2-9); NEUTROPHILS # (AUTO) 3.82 x10^3/uL (1.8-6.8); NEUTROPHILS % (AUTO) 50 % (42-75); PLATELET COUNT 234 x10^3/uL (130-400); RED BLOOD COUNT 2.46 x10^6/uL (4.38-5.82); RED CELL DISTRIBUTION WIDTH 15.1 % (9.4-14.8)
[2017-11-11 06:01] LABS: ANION GAP 9 mmol/L (5-15); CALCIUM 7.4 mg/dL (8.5-10.1); CHLORIDE 111 mmol/L (98-107); CREATININE 0.45 mg/dL (0.7-1.3)
[2017-11-11 06:38] LABS: MD NO
[2017-11-11] MEDS ORDERED: MAGNESIUM SULFATE PMX 4GM/100M 100 ML IV ONE (08:00)
[2017-11-11] MEDS: CARBAMAZEPINE 100 MG/5 ML NG SCH ×2 (08:48→22:11)
[2017-11-11] MEDS: SODIUM CHLORIDE FLUSH 10ML SYR IVF SCH ×2 (08:49→22:12)
[2017-11-11] MEDS: ERGOCALCIFEROL 50,000 UNIT CAPSULE PO SCH (08:49)
[2017-11-11] MEDS: METOPROLOL TARTRATE 50 MG TABLET PO SCH ×2 (08:49→22:12)
[2017-11-11] MEDS: PANTOPRAZOLE 40 MG IV IVPush SCH (08:49)
[2017-11-11] MEDS: PHENYTOIN SODIUM 50 MG/ML, 2ML IVPush SCH ×2 (08:49→22:12)
[2017-11-11 09:00] VITALS: BP 151/90
[2017-11-11] MEDS ORDERED: METOPROLOL SUCCINATE 50 MG TAB.ER.24H ONE (09:19)
[2017-11-11 13:57] VITALS: BP 133/72
[2017-11-11] MEDS: CEFTRIAXONE PMX 1GM/50ML 50 ML IV SCH (16:46)
[2017-11-11 20:00] VITALS: BP 157/88
[2017-11-12] MEDS: CARBAMAZEPINE 100 MG/5 ML NG SCH (00:27)
[2017-11-12 01:03] VITALS: BP 153/92
[2017-11-12] MEDS: INSULIN ASPART 100 UNITS/ML, PEN SQ-INSULIN SCH ×4 (03:00→21:00)
[2017-11-12] MEDS: VALPROATE SODIUM 500 MG in SODIUM CHLORIDE 0.9% 100 ML IV SCH (04:52)
[2017-11-12 05:07] LABS: MEAN CORPUSCULAR HEMOGLOBIN 33.1 pg (27.5-34.5); MEAN CORPUSCULAR HGB CONC 34.5 g/dL (33.2-36.2); MEAN CORPUSCULAR VOLUME 96.1 fL (81-97); MEAN PLATELET VOLUME 7.8 fL (7.4-10.4); PLATELET COUNT 215 x10^3/uL (130-400); RED BLOOD COUNT 2.36 x10^6/uL (4.38-5.82); RED CELL DISTRIBUTION WIDTH 14.5 % (9.4-14.8)
[2017-11-12 05:13] LABS: ANION GAP 7 mmol/L (5-15); CALCIUM 7.2 mg/dL (8.5-10.1); CHLORIDE 110 mmol/L (98-107)
[2017-11-12 05:14] LABS: CREATININE 0.46 mg/dL (0.7-1.3)
[2017-11-12 05:57] LABS: BASOPHILS # (AUTO) 0.04 x10^3/uL (0-0.1); BASOPHILS % (AUTO) 1 % (0-1); EOSINOPHILS # (AUTO) 0.04 x10^3/uL (0-0.4); EOSINOPHILS % (AUTO) 1 % (1-7); LYMPHOCYTES # (AUTO) 2.28 x10^3/uL (1-3.4); LYMPHOCYTES % (AUTO) 37 % (22-44); MD SCAN; MONOCYTES # (AUTO) 0.64 x10^3/uL (0.2-0.8); MONOCYTES % (AUTO) 10 % (2-9); NEUTROPHILS # (AUTO) 3.23 x10^3/uL (1.8-6.8); NEUTROPHILS % (AUTO) 52 % (42-75)
[2017-11-12 08:10] VITALS: BP 179/107
[2017-11-12] MEDS: PANTOPRAZOLE 40 MG IV IVPush SCH (08:45)
[2017-11-12] MEDS: LABETALOL 5MG/ML, 20ML IVPush PRN (08:45)
[2017-11-12] MEDS: SODIUM CHLORIDE FLUSH 10ML SYR IVF SCH ×2 (08:45→22:01)
[2017-11-12] MEDS: METOPROLOL TARTRATE 50 MG TABLET PO SCH ×2 (08:45→22:03)
[2017-11-12] MEDS: PHENYTOIN SODIUM 50 MG/ML, 2ML IVPush SCH (08:45)
[2017-11-12] MEDS ORDERED: FUROSEMIDE 20 MG/2 ML IV ONE (09:00)
[2017-11-12] MEDS ORDERED: PHENYTOIN 100 MG CAPSULE PO SCH (09:00)
[2017-11-12] MEDS ORDERED: VALPROIC ACID 250 MG CAPSULE PO SCH (09:00)
[2017-11-12] MEDS ORDERED: VALPROATE SODIUM 250 MG/5 ML ORAL SOLN PEG SCH (11:00)
[2017-11-12] MEDS: PHENYTOIN 125 MG/5 ML ORAL SUSP PO SCH ×2 (13:26→22:01)
[2017-11-12 14:20] VITALS: BP 136/84
[2017-11-12] MEDS: CEFTRIAXONE PMX 1GM/50ML 50 ML IV SCH (16:08)
[2017-11-12] MEDS: VALPROATE SODIUM 250 MG/5 ML ORAL SOLN PEG SCH ×2 (16:18→22:03)
[2017-11-12 20:10] VITALS: BP 148/81
[2017-11-13] VITALS (10 sets, daily range): BP systolic 128–180; BP diastolic 67–102
[2017-11-13] MEDS: INSULIN ASPART 100 UNITS/ML, PEN SQ-INSULIN SCH ×4 (03:03→21:00)
[2017-11-13 05:43] LABS: ANION GAP 8 mmol/L (5-15); CALCIUM 7.1 mg/dL (8.5-10.1); CHLORIDE 105 mmol/L (98-107); CREATININE 0.52 mg/dL (0.7-1.3)
[2017-11-13 05:52] LABS: MEAN CORPUSCULAR HEMOGLOBIN 32.4 pg (27.5-34.5); MEAN CORPUSCULAR HGB CONC 33.6 g/dL (33.2-36.2); MEAN CORPUSCULAR VOLUME 96.3 fL (81-97); MEAN PLATELET VOLUME 7.7 fL (7.4-10.4); PLATELET COUNT 218 x10^3/uL (130-400); RED BLOOD COUNT 2.35 x10^6/uL (4.38-5.82); RED CELL DISTRIBUTION WIDTH 14.4 % (9.4-14.8)
[2017-11-13 06:54] LABS: BASOPHILS # (AUTO) 0.06 x10^3/uL (0-0.1); BASOPHILS % (AUTO) 1 % (0-1); EOSINOPHILS % (AUTO) 0 % (1-7); LYMPHOCYTES # (AUTO) 2.67 x10^3/uL (1-3.4); LYMPHOCYTES % (AUTO) 29 % (22-44); MD SCAN; MONOCYTES # (AUTO) 1.05 x10^3/uL (0.2-0.8); MONOCYTES % (AUTO) 11 % (2-9); NEUTROPHILS # (AUTO) 5.46 x10^3/uL (1.8-6.8); NEUTROPHILS % (AUTO) 59 % (42-75)
[2017-11-13] MEDS ORDERED: FUROSEMIDE 20 MG/2 ML IV ONE (07:30)
[2017-11-13] MEDS ORDERED: CALCIUM GLUCONATE 4.6 MEQ in SODIUM CHLORIDE 0.9% 50 ML IV ONE (07:30)
[2017-11-13] MEDS: PANTOPRAZOLE 40 MG IV IVPush SCH (08:34)
[2017-11-13] MEDS: VALPROATE SODIUM 250 MG/5 ML ORAL SOLN PEG SCH ×3 (08:34→22:17)
[2017-11-13] MEDS: SODIUM CHLORIDE FLUSH 10ML SYR IVF SCH ×2 (08:35→22:17)
[2017-11-13] MEDS: METOPROLOL TARTRATE 50 MG TABLET PO SCH ×2 (08:35→22:24)
[2017-11-13] MEDS: PHENYTOIN 125 MG/5 ML ORAL SUSP PO SCH ×2 (09:25→21:00)
[2017-11-13 10:59] LABS: OCCULT BLOOD NEGATIVE (NEGATIVE)
[2017-11-13] MEDS: CEFTRIAXONE PMX 1GM/50ML 50 ML IV SCH (15:41)
[2017-11-13] MEDS ORDERED: FUROSEMIDE 40 MG/4 ML IV ONE (16:00)
[2017-11-13] MEDS ORDERED: FUROSEMIDE 40 MG/4 ML ONE (16:00)
[2017-11-13] MEDS: LABETALOL 5MG/ML, 20ML IVPush PRN (18:05)
[2017-11-14 02:12] VITALS: BP 152/90
[2017-11-14] MEDS: INSULIN ASPART 100 UNITS/ML, PEN SQ-INSULIN SCH ×4 (03:00→21:00)
[2017-11-14 04:35] LABS: ANION GAP 9 mmol/L (5-15); CALCIUM 7.6 mg/dL (8.5-10.1); CHLORIDE 103 mmol/L (98-107)
[2017-11-14 04:36] LABS: CREATININE 0.64 mg/dL (0.7-1.3)
[2017-11-14 04:37] LABS: MEAN CORPUSCULAR HEMOGLOBIN 32.2 pg (27.5-34.5); MEAN CORPUSCULAR HGB CONC 34.7 g/dL (33.2-36.2); MEAN CORPUSCULAR VOLUME 92.9 fL (81-97); MEAN PLATELET VOLUME 8.1 fL (7.4-10.4); PLATELET COUNT 229 x10^3/uL (130-400); RED BLOOD COUNT 3.78 x10^6/uL (4.38-5.82); RED CELL DISTRIBUTION WIDTH 15.9 % (9.4-14.8)
[2017-11-14 05:51] LABS: BASOPHILS # (AUTO) 0.03 x10^3/uL (0-0.1); BASOPHILS % (AUTO) 0 % (0-1); EOSINOPHILS # (AUTO) 0.05 x10^3/uL (0-0.4); EOSINOPHILS % (AUTO) 1 % (1-7); LYMPHOCYTES # (AUTO) 2.47 x10^3/uL (1-3.4); LYMPHOCYTES % (AUTO) 31 % (22-44); MD SCAN; MONOCYTES # (AUTO) 1.06 x10^3/uL (0.2-0.8); MONOCYTES % (AUTO) 13 % (2-9); NEUTROPHILS # (AUTO) 4.46 x10^3/uL (1.8-6.8); NEUTROPHILS % (AUTO) 55 % (42-75)
[2017-11-14 08:43] VITALS: BP 156/87
[2017-11-14] MEDS: VALPROATE SODIUM 250 MG/5 ML ORAL SOLN PEG SCH ×3 (09:41→21:00)
[2017-11-14] MEDS: PANTOPRAZOLE 40 MG IV IVPush SCH (09:41)
[2017-11-14] MEDS: METOPROLOL TARTRATE 50 MG TABLET PO SCH ×2 (09:42→22:24)
[2017-11-14] MEDS: PHENYTOIN 125 MG/5 ML ORAL SUSP PO SCH ×2 (09:42→22:23)
[2017-11-14] MEDS: SODIUM CHLORIDE FLUSH 10ML SYR IVF SCH ×2 (09:42→21:00)
[2017-11-14 15:10] VITALS: BP 152/83
[2017-11-14 19:36] VITALS: BP 127/69
[2017-11-14] MEDS: CEFDINIR 300 MG CAPSULE PO SCH (22:24)
[2017-11-15] VITALS (7 sets, daily range): BP systolic 141–195; BP diastolic 86–99
[2017-11-15] MEDS: INSULIN ASPART 100 UNITS/ML, PEN SQ-INSULIN SCH ×4 (03:00→21:00)
[2017-11-15 04:59] LABS: BASOPHILS # (AUTO) 0.04 x10^3/uL (0-0.1); BASOPHILS % (AUTO) 0 % (0-1); EOSINOPHILS # (AUTO) 0.07 x10^3/uL (0-0.4); EOSINOPHILS % (AUTO) 1 % (1-7); LYMPHOCYTES # (AUTO) 2.49 x10^3/uL (1-3.4); LYMPHOCYTES % (AUTO) 28 % (22-44); MD NO; MEAN CORPUSCULAR HEMOGLOBIN 31.1 pg (27.5-34.5); MEAN CORPUSCULAR HGB CONC 33.2 g/dL (33.2-36.2); MEAN CORPUSCULAR VOLUME 93.7 fL (81-97); MEAN PLATELET VOLUME 8.1 fL (7.4-10.4); MONOCYTES # (AUTO) 1.27 x10^3/uL (0.2-0.8); MONOCYTES % (AUTO) 14 % (2-9); NEUTROPHILS # (AUTO) 4.92 x10^3/uL (1.8-6.8); NEUTROPHILS % (AUTO) 56 % (42-75); PLATELET COUNT 308 x10^3/uL (130-400); RED BLOOD COUNT 4.03 x10^6/uL (4.38-5.82); RED CELL DISTRIBUTION WIDTH 15.8 % (9.4-14.8)
[2017-11-15 05:06] LABS: ANION GAP 6 mmol/L (5-15); CHLORIDE 104 mmol/L (98-107)
[2017-11-15 05:07] LABS: CREATININE 0.59 mg/dL (0.7-1.3)
[2017-11-15] MEDS: CEFDINIR 300 MG CAPSULE PO SCH ×2 (08:29→22:02)
[2017-11-15] MEDS: METOPROLOL TARTRATE 50 MG TABLET PO SCH ×2 (08:29→22:02)
[2017-11-15] MEDS: VALPROATE SODIUM 250 MG/5 ML ORAL SOLN PEG SCH ×3 (08:29→22:02)
[2017-11-15] MEDS: PHENYTOIN 125 MG/5 ML ORAL SUSP PO SCH ×2 (08:29→22:02)
[2017-11-15] MEDS: SODIUM CHLORIDE FLUSH 10ML SYR IVF SCH ×2 (08:31→21:00)
[2017-11-15] MEDS: PANTOPRAZOLE 40 MG IV IVPush SCH (08:31)
[2017-11-16] VITALS (8 sets, daily range): BP systolic 127–166; BP diastolic 74–112
[2017-11-16] MEDS: INSULIN ASPART 100 UNITS/ML, PEN SQ-INSULIN SCH ×4 (03:00→20:19)
[2017-11-16 05:03] LABS: BASOPHILS # (AUTO) 0.03 x10^3/uL (0-0.1); BASOPHILS % (AUTO) 0 % (0-1); EOSINOPHILS # (AUTO) 0.08 x10^3/uL (0-0.4); EOSINOPHILS % (AUTO) 1 % (1-7); LYMPHOCYTES % (AUTO) 35 % (22-44); MD NO; MEAN CORPUSCULAR HEMOGLOBIN 31.8 pg (27.5-34.5); MEAN CORPUSCULAR HGB CONC 33.9 g/dL (33.2-36.2); MEAN CORPUSCULAR VOLUME 93.8 fL (81-97); MEAN PLATELET VOLUME 8.1 fL (7.4-10.4); MONOCYTES % (AUTO) 13 % (2-9); NEUTROPHILS # (AUTO) 3.97 x10^3/uL (1.8-6.8); NEUTROPHILS % (AUTO) 51 % (42-75); PLATELET COUNT 361 x10^3/uL (130-400); RED CELL DISTRIBUTION WIDTH 14.9 % (9.4-14.8)
[2017-11-16 05:15] LABS: ANION GAP 9 mmol/L (5-15); CALCIUM 8.2 mg/dL (8.5-10.1); CHLORIDE 103 mmol/L (98-107)
[2017-11-16 05:17] LABS: CREATININE 0.53 mg/dL (0.7-1.3)
[2017-11-16] MEDS: VALPROATE SODIUM 250 MG/5 ML ORAL SOLN PEG SCH ×3 (08:24→20:38)
[2017-11-16] MEDS: CEFDINIR 300 MG CAPSULE PO SCH (08:24)
[2017-11-16] MEDS: PANTOPRAZOLE GRAN. PKT 40 MG PO SCH (08:24)
[2017-11-16] MEDS: SODIUM CHLORIDE FLUSH 10ML SYR IVF SCH ×2 (08:24→20:39)
[2017-11-16] MEDS: METOPROLOL TARTRATE 50 MG TABLET PO SCH ×2 (08:30→20:38)
[2017-11-16] MEDS: PHENYTOIN 125 MG/5 ML ORAL SUSP PO SCH ×2 (09:24→21:35)
[2017-11-16] MEDS: LOSARTAN 50MG TABLET PO SCH (10:17)
[2017-11-16] MEDS: MORPHINE SULFATE 4 MG/ML, 1ML IVPush PRN (11:15)
[2017-11-16] MEDS: CEFAZOLIN PMX 1GM/50ML 50 ML IV SCH (20:38)
[2017-11-17 01:08] VITALS: BP 126/83
[2017-11-17] MEDS: INSULIN ASPART 100 UNITS/ML, PEN SQ-INSULIN SCH ×4 (03:00→21:11)
[2017-11-17 05:42] LABS: BASOPHILS # (AUTO) 0.02 x10^3/uL (0-0.1); BASOPHILS % (AUTO) 0 % (0-1); EOSINOPHILS # (AUTO) 0.08 x10^3/uL (0-0.4); EOSINOPHILS % (AUTO) 1 % (1-7); LYMPHOCYTES # (AUTO) 2.37 x10^3/uL (1-3.4); LYMPHOCYTES % (AUTO) 32 % (22-44); MD NO; MEAN CORPUSCULAR HEMOGLOBIN 31.8 pg (27.5-34.5); MEAN CORPUSCULAR HGB CONC 33.8 g/dL (33.2-36.2); MEAN PLATELET VOLUME 7.7 fL (7.4-10.4); MONOCYTES # (AUTO) 0.95 x10^3/uL (0.2-0.8); MONOCYTES % (AUTO) 13 % (2-9); NEUTROPHILS # (AUTO) 4.05 x10^3/uL (1.8-6.8); NEUTROPHILS % (AUTO) 54 % (42-75); PLATELET COUNT 371 x10^3/uL (130-400); RED BLOOD COUNT 3.73 x10^6/uL (4.38-5.82); RED CELL DISTRIBUTION WIDTH 14.8 % (9.4-14.8)
[2017-11-17 05:51] LABS: ANION GAP 7 mmol/L (5-15); CHLORIDE 103 mmol/L (98-107); CREATININE 0.54 mg/dL (0.7-1.3)
[2017-11-17 08:08] VITALS: BP 145/94
[2017-11-17] MEDS: PHENYTOIN 125 MG/5 ML ORAL SUSP PO SCH ×2 (09:46→21:10)
[2017-11-17] MEDS: METOPROLOL TARTRATE 50 MG TABLET PO SCH ×2 (09:46→21:11)
[2017-11-17] MEDS: PANTOPRAZOLE GRAN. PKT 40 MG PO SCH (09:47)
[2017-11-17] MEDS: VALPROATE SODIUM 250 MG/5 ML ORAL SOLN PEG SCH ×3 (09:47→21:10)
[2017-11-17] MEDS: LOSARTAN 50MG TABLET PO SCH (09:47)
[2017-11-17] MEDS: SODIUM CHLORIDE FLUSH 10ML SYR IVF SCH ×2 (09:47→21:09)
[2017-11-17] MEDS: CEFAZOLIN PMX 1GM/50ML 50 ML IV SCH ×2 (09:47→21:09)
[2017-11-17 17:21] VITALS: BP 158/98
[2017-11-17 18:41] VITALS: BP 167/90
[2017-11-17 23:49] VITALS: BP 166/96
[2017-11-18 00:13] VITALS: BP 147/89
[2017-11-18] MEDS: INSULIN ASPART 100 UNITS/ML, PEN SQ-INSULIN SCH ×2 (02:55→11:00)
[2017-11-18 06:09] LABS: ANION GAP 9 mmol/L (5-15); CALCIUM 8.4 mg/dL (8.5-10.1); CHLORIDE 103 mmol/L (98-107)
[2017-11-18 06:12] LABS: BASOPHILS # (AUTO) 0.03 x10^3/uL (0-0.1); BASOPHILS % (AUTO) 0 % (0-1); EOSINOPHILS # (AUTO) 0.11 x10^3/uL (0-0.4); EOSINOPHILS % (AUTO) 1 % (1-7); LYMPHOCYTES # (AUTO) 2.66 x10^3/uL (1-3.4); LYMPHOCYTES % (AUTO) 33 % (22-44); MD NO; MEAN CORPUSCULAR HEMOGLOBIN 31.7 pg (27.5-34.5); MEAN CORPUSCULAR HGB CONC 33.8 g/dL (33.2-36.2); MEAN CORPUSCULAR VOLUME 93.7 fL (81-97); MEAN PLATELET VOLUME 7.6 fL (7.4-10.4); MONOCYTES # (AUTO) 1.21 x10^3/uL (0.2-0.8); MONOCYTES % (AUTO) 15 % (2-9); NEUTROPHILS # (AUTO) 4.02 x10^3/uL (1.8-6.8); NEUTROPHILS % (AUTO) 50 % (42-75); PLATELET COUNT 466 x10^3/uL (130-400); RED BLOOD COUNT 3.82 x10^6/uL (4.38-5.82); RED CELL DISTRIBUTION WIDTH 14.8 % (9.4-14.8)
[2017-11-18 07:08] VITALS: BP 122/54
[2017-11-18] MEDS: SODIUM CHLORIDE FLUSH 10ML SYR IVF SCH (08:50)
[2017-11-18] MEDS: LOSARTAN 50MG TABLET PO SCH (09:50)
[2017-11-18] MEDS: VALPROATE SODIUM 250 MG/5 ML ORAL SOLN PEG SCH (09:54)
[2017-11-18] MEDS: PHENYTOIN 125 MG/5 ML ORAL SUSP PO SCH (09:54)
[2017-11-18] MEDS: PANTOPRAZOLE GRAN. PKT 40 MG PO SCH (09:55)
[2017-11-18] MEDS: METOPROLOL TARTRATE 50 MG TABLET PO SCH (09:55)
[2017-11-18] MEDS: CEFAZOLIN PMX 1GM/50ML 50 ML IV SCH (09:55)
[2017-11-18] MEDS: ERGOCALCIFEROL 50,000 UNIT CAPSULE PO SCH (09:57)
[2017-11-18] MEDS ORDERED: ALPR0.254 PO (12:07)
[2017-11-18] MEDS ORDERED: PANT40GR PO (12:07)
[2017-11-18] MEDS ORDERED: METO50TA82 PO (12:07)
[2017-11-18] MEDS ORDERED: VALP250S PEG (12:07)
[2017-11-18] MEDS ORDERED: LOSA50TA2 PO (12:07)
[2017-11-18] MEDS ORDERED: ERGO500017 PO (12:07)
[2017-11-18] MEDS ORDERED: PHEN125O11 PO (12:07)
[2017-11-18] MEDS ORDERED: CARB100O7 PO (12:14)
[2017-11-18] MEDS ORDERED: PNEUMOCOCCAL 23 VACCINE IM-VACC ONE (12:30)
[2017-11-18] MEDS ORDERED: FLU VACC QS2017-18 (36MOS+) UP/PF 0.5 ML IM-VACC ONE (12:30)
== END 2017-11-18 15:30 | DRG 870 ==
LOC: CCU 22:53 → 4NOR 10-30 14:33 → CCU 10-31 18:49 → 5SO 11-01 19:34 → CCU 11-04 15:53 → 5SO 11-06 14:09 → 4WST 11-13 17:45
PROVIDERS: ADMIT Internal Medicine Critical Care Medicine; ATTEND Family Medicine
PROC: 5A1955Z Respiratory Ventilation, Greater than 96 Consecutive Hours (ICD-10-PCS; principal; 2017-10-23)
PROC: 0BH17EZ Insertion of Endotracheal Airway into Trachea, Via Natural or Artificial Opening (ICD-10-PCS; 2017-10-23)
PROC: 0T9B70Z Drainage of Bladder with Drainage Device, Via Natural or Artificial Opening (ICD-10-PCS; 2017-10-23)
PROC: 0BCB8ZZ Extirpation of Matter from Left Lower Lobe Bronchus, Via Natural or Artificial Opening Endoscopic (ICD-10-PCS; 2017-10-27)
PROC: 0BC78ZZ Extirpation of Matter from Left Main Bronchus, Via Natural or Artificial Opening Endoscopic (ICD-10-PCS; 2017-10-27)
PROC: 30233N1 Transfusion of Nonautologous Red Blood Cells into Peripheral Vein, Percutaneous Approach (ICD-10-PCS; 2017-11-01)
PROC: 0W993ZZ Drainage of Right Pleural Cavity, Percutaneous Approach (ICD-10-PCS; 2017-11-04)
PROC: 0DH68UZ Insertion of Feeding Device into Stomach, Via Natural or Artificial Opening Endoscopic (ICD-10-PCS; 2017-11-10)
DX: A41.1 Sepsis due to other specified staphylococcus (principal); J96.01 Acute respiratory failure with hypoxia; N17.0 Acute kidney failure with tubular necrosis; R65.21 Severe sepsis with septic shock; E43 Unspecified severe protein-calorie malnutrition; J10.08 Influenza due to other identified influenza virus with other specified pneumonia; J90 Pleural effusion, not elsewhere classified; G93.40 Encephalopathy, unspecified; Z99.11 Dependence on respirator [ventilator] status; G71.0 Muscular dystrophy; E27.40 Unspecified adrenocortical insufficiency; Z68.1 Body mass index [BMI] 19.9 or less, adult; J98.11 Atelectasis; T17.890A Other foreign object in other parts of respiratory tract causing asphyxiation, initial encounter; R65.20 Severe sepsis without septic shock; D69.6 Thrombocytopenia, unspecified; D53.1 Other megaloblastic anemias, not elsewhere classified; E83.42 Hypomagnesemia; E86.1 Hypovolemia; D63.8 Anemia in other chronic diseases classified elsewhere; E11.9 Type 2 diabetes mellitus without complications; Z88.0 Allergy status to penicillin; B95.61 Methicillin susceptible Staphylococcus aureus infection as the cause of diseases classified elsewhere; E55.9 Vitamin D deficiency, unspecified; G40.909 Epilepsy, unspecified, not intractable, without status epilepticus; G80.9 Cerebral palsy, unspecified; I10 Essential (primary) hypertension; K59.00 Constipation, unspecified; R13.10 Dysphagia, unspecified; R62.7 Adult failure to thrive; Z51.5 Encounter for palliative care; Z66 Do not resuscitate; Z93.1 Gastrostomy status
CPT/HCPCS: 31622; 32555; 36415; 36600; 71010; 71045; 74018; 80048; 80053; 80164; 80185; 80202; 81003; 82040; 82042; 82272; 82306; 82330; 82533; 82607; 82728; 82746; 82803; 82962; 83036; 83540; 83550; 83735; 84100; 84155; 84157; 84443; 84466; 84478; 85025; 85610; 86022; 86850; 86900; 86923; 87040; 87070; 87081; 87205; 88112; 89051; 90686; 90732; 93005; 93306; 94002; 94003; 94150; 94667; 94668; 99152; 99153; 99285; B4087; J0610; J0690; J0696; J1165; J1644; J1815; J1940; J2185; J2250; J3010; J3370; J3475; J3480; J3490; J7042; P9047; C9113; J0360; J1720; J2060; J7030; J7040; J7050; P9016

== ENCOUNTER 2017-12-11 10:20 | Emergency (ER) | payer MEDICAID ==
[~2017-12-11] VITALS: Ht 152.4 cm; Wt 38.0 kg
[~2017-12-11 10:20] MED LIST: ALPR0.254 PO; CARB100O7 PO; ERGO500017 PO; LOSA50TA2 PO; METO50TA82 PO; PANT40GR PO; PHEN125O PO; PHEN125O11 PO; PHEN50TA PO; VALP250S PEG; VALP500S PO
[2017-12-11 10:33] VITALS: BP 122/77
[2017-12-11] MEDS ORDERED: VISIPAQUE 270 MG/ML, 50ML BOTTLE ONE (13:44)
== END 2017-12-11 14:02 | disposition home or self-care (01) ==
LOC: ED 13:22
DX: Z43.1 Encounter for attention to gastrostomy (principal); I10 Essential (primary) hypertension
CPT/HCPCS: 49450; 99284; C1729; C1769; Q9966; 49440

== ENCOUNTER 2017-12-18 15:20 | Emergency (ER) | payer MEDICAID ==
[~2017-12-18] VITALS: Ht 152.4 cm; Wt 40.0 kg
[2017-12-18] MEDS ORDERED: SODIUM CHLORIDE FLUSH 10ML SYR IVF ONE (15:30)
[2017-12-18] MEDS ORDERED: SODIUM CHLORIDE 0.9% 1,000ML IVBOLUS ONE (15:30)
[2017-12-18] MEDS ORDERED: PLEASE ENTER HEIGHT AND WEIGHT MC SCH (16:00)
[2017-12-18 16:14] LABS: BASOPHILS # (AUTO) 0.02 x10^3/uL (0-0.1); BASOPHILS % (AUTO) 0 % (0-1); EOSINOPHILS # (AUTO) 0.01 x10^3/uL (0-0.4); EOSINOPHILS % (AUTO) 0 % (1-7); LYMPHOCYTES # (AUTO) 2.88 x10^3/uL (1-3.4); LYMPHOCYTES % (AUTO) 50 % (22-44); MD NO; MEAN CORPUSCULAR HGB CONC 34.6 g/dL (33.2-36.2); MEAN CORPUSCULAR VOLUME 92.3 fL (81-97); MEAN PLATELET VOLUME 7.8 fL (7.4-10.4); MONOCYTES # (AUTO) 0.34 x10^3/uL (0.2-0.8); MONOCYTES % (AUTO) 6 % (2-9); NEUTROPHILS # (AUTO) 2.47 x10^3/uL (1.8-6.8); NEUTROPHILS % (AUTO) 43 % (42-75); PLATELET COUNT 305 x10^3/uL (130-400); RED BLOOD COUNT 3.09 x10^6/uL (4.38-5.82); RED CELL DISTRIBUTION WIDTH 16.3 % (9.4-14.8)
[2017-12-18 16:38] LABS: ALBUMIN 2.8 g/dL (3.4-5.0); ANION GAP 7 mmol/L (5-15); CALCIUM 8.3 mg/dL (8.5-10.1); CHLORIDE 95 mmol/L (98-107)
[2017-12-18 16:42] LABS: ALANINE AMINOTRANSFERASE 12 U/L (12-78); ALKALINE PHOSPHATASE 44 U/L (45-117); BILIRUBIN,TOTAL 0.4 mg/dL (0.2-1.0); CREATININE 0.55 mg/dL (0.7-1.3); TOTAL PROTEIN 7.5 g/dL (6.4-8.2)
[2017-12-18] MEDS ORDERED: OMNIPAQUE 350 MG/ML, 50 ML BOTTLE ONE ×2 (17:30→20:21)
[2017-12-18 22:03] VITALS: BP 104/56
== END 2017-12-18 22:37 | disposition home or self-care (01) ==
LOC: ED 20:53
DX: Z43.1 Encounter for attention to gastrostomy (principal); I10 Essential (primary) hypertension; G80.9 Cerebral palsy, unspecified
CPT/HCPCS: 36415; 43760; 74018; 80053; 85025; 96360; 99285; J7030; Q9967

== ENCOUNTER 2017-12-19 12:33 | Emergency (ER) | payer MEDICAID ==
[~2017-12-19] VITALS: Ht 152.4 cm; Wt 40.0 kg
[2017-12-19] MEDS ORDERED: LIDOCAINE 1%, 20ML ONE (13:50)
[2017-12-19] MEDS ORDERED: VISIPAQUE 270 MG/ML, 50ML BOTTLE ONE (14:00)
[2017-12-19] MEDS ORDERED: FENTANYL PF 100 MCG/2ML ONE ×2 (14:17→14:18)
[2017-12-19 18:25] VITALS: BP 132/82
== END 2017-12-19 18:27 | disposition home or self-care (01) ==
LOC: ED 13:44
DX: Z43.1 Encounter for attention to gastrostomy (principal); Z88.0 Allergy status to penicillin; I10 Essential (primary) hypertension
CPT/HCPCS: 49440; 49450; 99284; C1729; C1769; J3010; J3490; Q9966

== ENCOUNTER 2018-03-04 23:04 | Inpatient (IN) | payer MEDICAID ==
[~2018-03-04] VITALS: Ht 152.4 cm; Wt 47.0 kg
[~2018-03-04 23:04] MED LIST changes: -PHEN125O11 PO; +PHEN125O4 PO
[2018-03-04] MEDS ORDERED: SODIUM CHLORIDE 0.9% 1,000ML IVBOLUS ONE (23:30)
[2018-03-04] MEDS ORDERED: SODIUM CHLORIDE FLUSH 10ML SYR IVF ONE (23:30)
[2018-03-04] MEDS ORDERED: PHEN100C PEG (23:43)
[2018-03-05 00:49] VITALS: BP 144/79
[2018-03-05] MEDS ORDERED: SODIUM CHLORIDE 0.9% 1,000 ML IV SCH (00:56)
[2018-03-05] MEDS ORDERED: hydrALAzine 20 MG/ML, 1ML IVPush PRN (01:00)
[2018-03-05 04:44] VITALS: BP 144/79
[2018-03-05 08:18] VITALS: BP 127/84
[2018-03-05 10:30] LABS: BASOPHILS # (AUTO) 0.06 x10^3/uL (0-0.1); BASOPHILS % (AUTO) 1 % (0-1); EOSINOPHILS # (AUTO) 0.03 x10^3/uL (0-0.4); EOSINOPHILS % (AUTO) 0 % (1-7); LYMPHOCYTES % (AUTO) 37 % (22-44); MD NO; MEAN CORPUSCULAR HEMOGLOBIN 32.7 pg (27.5-34.5); MEAN CORPUSCULAR HGB CONC 34.1 g/dL (33.2-36.2); MEAN CORPUSCULAR VOLUME 96.1 fL (81-97); MONOCYTES # (AUTO) 0.51 x10^3/uL (0.2-0.8); MONOCYTES % (AUTO) 6 % (2-9); NEUTROPHILS # (AUTO) 4.78 x10^3/uL (1.8-6.8); NEUTROPHILS % (AUTO) 56 % (42-75); PLATELET COUNT 600 x10^3/uL (130-400); RED BLOOD COUNT 3.14 x10^6/uL (4.38-5.82); RED CELL DISTRIBUTION WIDTH 12.9 % (9.4-14.8)
[2018-03-05 10:35] LABS: INTERNATIONAL NORMALIZED RATIO 1.09 (0.93-1.1); PROTHROMBIN TIME 11.3 Seconds (9.6-11.5)
[2018-03-05 10:39] LABS: ALANINE AMINOTRANSFERASE 19 U/L (12-78); ALBUMIN 2.7 g/dL (3.4-5.0); ANION GAP 6 mmol/L (5-15); CALCIUM 8.5 mg/dL (8.5-10.1); CHLORIDE 108 mmol/L (98-107); CREATININE 0.57 mg/dL (0.7-1.3)
[2018-03-05 10:41] LABS: ALKALINE PHOSPHATASE 207 U/L (45-117); BILIRUBIN,TOTAL 0.3 mg/dL (0.2-1.0); TOTAL PROTEIN 8.5 g/dL (6.4-8.2)
[2018-03-05] MEDS ORDERED: VISIPAQUE 320MG/ML, 50ML BOTTLE ONE (13:06)
[2018-03-05 14:30] VITALS: BP 138/88
== END 2018-03-05 14:52 | disposition home or self-care (01) | DRG 393 ==
LOC: ED 23:18 → EDIP 23:47 → 3NE 03-05 00:29
PROVIDERS: ADMIT Internal Medicine; ATTEND Internal Medicine
PROC: 0D20XUZ Change Feeding Device in Upper Intestinal Tract, External Approach (ICD-10-PCS; principal; 2018-03-05)
DX: Z43.1 Encounter for attention to gastrostomy (principal); R53.2 Functional quadriplegia; G71.0 Muscular dystrophy; E11.22 Type 2 diabetes mellitus with diabetic chronic kidney disease; N18.3 Chronic kidney disease, stage 3 (moderate); G80.9 Cerebral palsy, unspecified; G40.909 Epilepsy, unspecified, not intractable, without status epilepticus; D63.8 Anemia in other chronic diseases classified elsewhere; I12.9 Hypertensive chronic kidney disease with stage 1 through stage 4 chronic kidney disease, or unspecified chronic kidney disease
CPT/HCPCS: 36415; 49440; 80053; 85025; 85610; 99285; Q9967; C1729; C1769; C1892; J7030

== ENCOUNTER 2018-03-25 01:29 | Inpatient (IN) | payer MEDICAID ==
[~2018-03-25] VITALS: Ht 152.4 cm; Wt 43.9 kg
[~2018-03-25 01:29] MED LIST changes: +PHEN100C PEG
[2018-03-25 02:11] LABS: BASOPHILS # (AUTO) 0.07 x10^3/uL (0-0.1); BASOPHILS % (AUTO) 1 % (0-1); EOSINOPHILS # (AUTO) 0.02 x10^3/uL (0-0.4); EOSINOPHILS % (AUTO) 0 % (1-7); LYMPHOCYTES # (AUTO) 3.98 x10^3/uL (1-3.4); LYMPHOCYTES % (AUTO) 33 % (22-44); MD NO; MEAN CORPUSCULAR HEMOGLOBIN 31.8 pg (27.5-34.5); MEAN CORPUSCULAR HGB CONC 33.7 g/dL (33.2-36.2); MEAN CORPUSCULAR VOLUME 94.4 fL (81-97); MEAN PLATELET VOLUME 7.4 fL (7.4-10.4); MONOCYTES # (AUTO) 0.66 x10^3/uL (0.2-0.8); MONOCYTES % (AUTO) 6 % (2-9); NEUTROPHILS % (AUTO) 61 % (42-75); PLATELET COUNT 488 x10^3/uL (130-400); RED BLOOD COUNT 3.61 x10^6/uL (4.38-5.82); RED CELL DISTRIBUTION WIDTH 13.1 % (9.4-14.8)
[2018-03-25 02:17] LABS: ALBUMIN 3.2 g/dL (3.4-5.0); ANION GAP 6 mmol/L (5-15); CALCIUM 9.1 mg/dL (8.5-10.1); CHLORIDE 107 mmol/L (98-107); CREATININE 0.79 mg/dL (0.7-1.3)
[2018-03-25] MEDS ORDERED: SODIUM CHLORIDE 0.9% 1,000ML IVBOLUS ONE (03:00)
[2018-03-25 03:26] VITALS: BP 141/84
[2018-03-25 04:28] VITALS: BP 141/84
[2018-03-25] MEDS ORDERED: PROMETHAZINE 25 MG/ML, 1ML IM PRN (04:30)
[2018-03-25] MEDS ORDERED: hydrALAzine 20 MG/ML, 1ML IVPush PRN (04:30)
[2018-03-25] MEDS: PHENYTOIN MC SCH ×3 (04:30→20:30)
[2018-03-25] MEDS ORDERED: ACETAMINOPHEN 325 MG TABLET PO PRN (04:30)
[2018-03-25] MEDS ORDERED: PLEASE ENTER HEIGHT MC SCH (04:30)
[2018-03-25] MEDS ORDERED: ONDANSETRON ODT 4 MG PO PRN (04:30)
[2018-03-25] MEDS: D5%-0.9% NACL+KCL 20MEQ 1,000 ML IV SCH ×2 (06:09→18:44)
[2018-03-25 07:14] VITALS: BP 134/65
[2018-03-25] MEDS: PANTOPRAZOLE GRAN. PKT 40 MG PO SCH (07:30)
[2018-03-25] MEDS: PHENYTOIN 125 MG/5 ML ORAL SUSP PO SCH ×2 (09:00→23:37)
[2018-03-25] MEDS: CARBAMAZEPINE 200 MG TABLET PO SCH ×3 (09:00→23:35)
[2018-03-25] MEDS ORDERED: PHENYTOIN 100 MG CAPSULE PEG SCH (09:00)
[2018-03-25] MEDS: LOSARTAN 50MG TABLET PO SCH (09:00)
[2018-03-25] MEDS: METOPROLOL TARTRATE 50 MG TABLET PO SCH ×2 (09:00→23:35)
[2018-03-25] MEDS: VALPROATE SODIUM 250 MG/5 ML ORAL SOLN PEG SCH ×3 (09:00→23:36)
[2018-03-25 10:17] LABS: BASOPHILS # (AUTO) 0.06 x10^3/uL (0-0.1); BASOPHILS % (AUTO) 1 % (0-1); EOSINOPHILS # (AUTO) 0.01 x10^3/uL (0-0.4); EOSINOPHILS % (AUTO) 0 % (1-7); LYMPHOCYTES # (AUTO) 2.83 x10^3/uL (1-3.4); LYMPHOCYTES % (AUTO) 29 % (22-44); MD NO; MEAN CORPUSCULAR HEMOGLOBIN 31.3 pg (27.5-34.5); MEAN CORPUSCULAR HGB CONC 33.2 g/dL (33.2-36.2); MEAN CORPUSCULAR VOLUME 94.3 fL (81-97); MEAN PLATELET VOLUME 7.4 fL (7.4-10.4); MONOCYTES # (AUTO) 0.63 x10^3/uL (0.2-0.8); MONOCYTES % (AUTO) 6 % (2-9); NEUTROPHILS # (AUTO) 6.33 x10^3/uL (1.8-6.8); NEUTROPHILS % (AUTO) 64 % (42-75); PLATELET COUNT 416 x10^3/uL (130-400); RED BLOOD COUNT 3.36 x10^6/uL (4.38-5.82); RED CELL DISTRIBUTION WIDTH 12.9 % (9.4-14.8)
[2018-03-25 10:28] LABS: ALBUMIN 2.8 g/dL (3.4-5.0); ANION GAP 7 mmol/L (5-15); CALCIUM 8.6 mg/dL (8.5-10.1); CHLORIDE 108 mmol/L (98-107); CREATININE 0.56 mg/dL (0.7-1.3)
[2018-03-25 14:54] VITALS: BP 136/79
[2018-03-25] MEDS ORDERED: FLUMAZENIL 0.1 MG/1 ML, 5ML ONE (15:27)
[2018-03-25] MEDS ORDERED: MIDAZOLAM 1 MG/ML, 5ML ONE (15:27)
[2018-03-25] MEDS ORDERED: NALOXONE 1 MG/ML, 2ML ONE (15:27)
[2018-03-25] MEDS ORDERED: FENTANYL PF 100 MCG/2ML ONE (15:27)
[2018-03-25] MEDS ORDERED: VISIPAQUE 270 MG/ML, 50ML BOTTLE ONE (16:04)
[2018-03-25 19:24] VITALS: BP 159/83
[2018-03-26 00:26] VITALS: BP 139/76
[2018-03-26] MEDS: PHENYTOIN MC SCH ×3 (04:30→19:31)
[2018-03-26 05:39] LABS: ALBUMIN 2.8 g/dL (3.4-5.0); ANION GAP 8 mmol/L (5-15); CALCIUM 8.3 mg/dL (8.5-10.1); CHLORIDE 108 mmol/L (98-107)
[2018-03-26 05:40] LABS: CREATININE 0.59 mg/dL (0.7-1.3)
[2018-03-26] MEDS: D5%-0.9% NACL+KCL 20MEQ 1,000 ML IV SCH ×2 (05:40→17:52)
[2018-03-26 05:44] LABS: BASOPHILS # (AUTO) 0.03 x10^3/uL (0-0.1); BASOPHILS % (AUTO) 0 % (0-1); EOSINOPHILS # (AUTO) 0.03 x10^3/uL (0-0.4); EOSINOPHILS % (AUTO) 0 % (1-7); LYMPHOCYTES # (AUTO) 2.86 x10^3/uL (1-3.4); LYMPHOCYTES % (AUTO) 21 % (22-44); MD NO; MEAN CORPUSCULAR HEMOGLOBIN 31.5 pg (27.5-34.5); MEAN CORPUSCULAR HGB CONC 33.6 g/dL (33.2-36.2); MEAN CORPUSCULAR VOLUME 93.6 fL (81-97); MEAN PLATELET VOLUME 7.6 fL (7.4-10.4); MONOCYTES # (AUTO) 0.79 x10^3/uL (0.2-0.8); MONOCYTES % (AUTO) 6 % (2-9); NEUTROPHILS # (AUTO) 9.93 x10^3/uL (1.8-6.8); NEUTROPHILS % (AUTO) 73 % (42-75); PLATELET COUNT 409 x10^3/uL (130-400); RED BLOOD COUNT 3.26 x10^6/uL (4.38-5.82); RED CELL DISTRIBUTION WIDTH 12.7 % (9.4-14.8)
[2018-03-26 06:36] LABS: BASOPHILS # (AUTO) 0.02 x10^3/uL (0-0.1); BASOPHILS % (AUTO) 0 % (0-1); EOSINOPHILS # (AUTO) 0.02 x10^3/uL (0-0.4); EOSINOPHILS % (AUTO) 0 % (1-7); LYMPHOCYTES # (AUTO) 2.99 x10^3/uL (1-3.4); LYMPHOCYTES % (AUTO) 21 % (22-44); MD NO; MEAN CORPUSCULAR HEMOGLOBIN 31.9 pg (27.5-34.5); MEAN CORPUSCULAR HGB CONC 33.9 g/dL (33.2-36.2); MEAN CORPUSCULAR VOLUME 94.2 fL (81-97); MEAN PLATELET VOLUME 7.1 fL (7.4-10.4); MONOCYTES # (AUTO) 0.78 x10^3/uL (0.2-0.8); MONOCYTES % (AUTO) 5 % (2-9); NEUTROPHILS # (AUTO) 10.79 x10^3/uL (1.8-6.8); NEUTROPHILS % (AUTO) 74 % (42-75); PLATELET COUNT 398 x10^3/uL (130-400); RED BLOOD COUNT 3.24 x10^6/uL (4.38-5.82); RED CELL DISTRIBUTION WIDTH 12.9 % (9.4-14.8)
[2018-03-26 08:01] VITALS: BP 121/67
[2018-03-26] MEDS: ERGOCALCIFEROL 50,000 UNIT CAPSULE PO SCH ×2 (09:00→10:41)
[2018-03-26] MEDS ORDERED: CHOLECALCIFEROL 1,000 UNIT TABLET ONE (10:20)
[2018-03-26] MEDS: PANTOPRAZOLE GRAN. PKT 40 MG PO SCH (10:31)
[2018-03-26] MEDS: METOPROLOL TARTRATE 50 MG TABLET PO SCH ×2 (10:31→21:46)
[2018-03-26] MEDS: LOSARTAN 50MG TABLET PO SCH (10:31)
[2018-03-26] MEDS: CARBAMAZEPINE 200 MG TABLET PO SCH ×3 (10:31→21:46)
[2018-03-26] MEDS: VALPROATE SODIUM 250 MG/5 ML ORAL SOLN PEG SCH ×3 (10:41→21:40)
[2018-03-26] MEDS: PHENYTOIN 125 MG/5 ML ORAL SUSP PO SCH ×2 (10:42→21:45)
[2018-03-26 14:01] VITALS: BP 130/86
[2018-03-26 14:10] VITALS: BP 124/84
[2018-03-26 20:24] VITALS: BP 134/91
[2018-03-27 00:43] VITALS: BP 128/78
[2018-03-27] MEDS: D5%-0.9% NACL+KCL 20MEQ 1,000 ML IV SCH ×2 (03:13→15:52)
[2018-03-27] MEDS: PHENYTOIN MC SCH ×2 (04:03→12:30)
[2018-03-27 05:18] LABS: MICROSCOPIC NOT IND
[2018-03-27 05:21] LABS: CULTURE INDICATED? NO
[2018-03-27 05:44] LABS: BASOPHILS # (AUTO) 0.03 x10^3/uL (0-0.1); BASOPHILS % (AUTO) 0 % (0-1); EOSINOPHILS # (AUTO) 0.04 x10^3/uL (0-0.4); EOSINOPHILS % (AUTO) 0 % (1-7); LYMPHOCYTES # (AUTO) 3.54 x10^3/uL (1-3.4); LYMPHOCYTES % (AUTO) 31 % (22-44); MD NO; MEAN CORPUSCULAR HEMOGLOBIN 31.6 pg (27.5-34.5); MEAN CORPUSCULAR HGB CONC 33.7 g/dL (33.2-36.2); MEAN CORPUSCULAR VOLUME 93.6 fL (81-97); MEAN PLATELET VOLUME 7.4 fL (7.4-10.4); MONOCYTES # (AUTO) 0.81 x10^3/uL (0.2-0.8); MONOCYTES % (AUTO) 7 % (2-9); NEUTROPHILS # (AUTO) 7.12 x10^3/uL (1.8-6.8); NEUTROPHILS % (AUTO) 62 % (42-75); PLATELET COUNT 408 x10^3/uL (130-400); RED BLOOD COUNT 3.28 x10^6/uL (4.38-5.82); RED CELL DISTRIBUTION WIDTH 12.9 % (9.4-14.8)
[2018-03-27 05:46] LABS: CHLORIDE 107 mmol/L (98-107)
[2018-03-27 05:57] LABS: ANION GAP 9 mmol/L (5-15); CALCIUM 8.4 mg/dL (8.5-10.1); CREATININE 0.59 mg/dL (0.7-1.3)
[2018-03-27 07:22] VITALS: BP 115/71
[2018-03-27] MEDS: PANTOPRAZOLE GRAN. PKT 40 MG PO SCH (08:37)
[2018-03-27] MEDS: VALPROATE SODIUM 250 MG/5 ML ORAL SOLN PEG SCH ×3 (11:14→20:57)
[2018-03-27] MEDS: CARBAMAZEPINE 200 MG TABLET PO SCH ×3 (11:15→20:31)
[2018-03-27] MEDS: LOSARTAN 50MG TABLET PO SCH (11:15)
[2018-03-27] MEDS: METOPROLOL TARTRATE 50 MG TABLET PO SCH ×2 (11:15→19:33)
[2018-03-27] MEDS: PHENYTOIN 125 MG/5 ML ORAL SUSP PO SCH ×2 (11:20→20:31)
[2018-03-27 13:33] VITALS: BP 92/56
[2018-03-27 20:00] VITALS: BP 118/76
[2018-03-28] MEDS: D5%-0.9% NACL+KCL 20MEQ 1,000 ML IV SCH ×2 (01:00→12:56)
[2018-03-28 01:06] VITALS: BP 108/70
[2018-03-28 05:16] LABS: BASOPHILS # (AUTO) 0.03 x10^3/uL (0-0.1); BASOPHILS % (AUTO) 0 % (0-1); EOSINOPHILS # (AUTO) 0.03 x10^3/uL (0-0.4); EOSINOPHILS % (AUTO) 0 % (1-7); LYMPHOCYTES # (AUTO) 2.82 x10^3/uL (1-3.4); LYMPHOCYTES % (AUTO) 40 % (22-44); MD NO; MEAN CORPUSCULAR HEMOGLOBIN 32.2 pg (27.5-34.5); MEAN CORPUSCULAR HGB CONC 33.7 g/dL (33.2-36.2); MEAN CORPUSCULAR VOLUME 95.4 fL (81-97); MEAN PLATELET VOLUME 7.7 fL (7.4-10.4); MONOCYTES % (AUTO) 7 % (2-9); NEUTROPHILS # (AUTO) 3.75 x10^3/uL (1.8-6.8); NEUTROPHILS % (AUTO) 53 % (42-75); PLATELET COUNT 327 x10^3/uL (130-400); RED BLOOD COUNT 3.02 x10^6/uL (4.38-5.82); RED CELL DISTRIBUTION WIDTH 13.1 % (9.4-14.8)
[2018-03-28 06:56] VITALS: BP 104/65
[2018-03-28] MEDS: METOPROLOL TARTRATE 50 MG TABLET PO SCH (09:34)
[2018-03-28] MEDS: LOSARTAN 50MG TABLET PO SCH (09:34)
[2018-03-28] MEDS: PANTOPRAZOLE GRAN. PKT 40 MG PO SCH (09:34)
[2018-03-28] MEDS: CARBAMAZEPINE 200 MG TABLET PO SCH ×2 (09:34→15:46)
[2018-03-28] MEDS: VALPROATE SODIUM 250 MG/5 ML ORAL SOLN PEG SCH ×2 (09:34→15:46)
[2018-03-28] MEDS: PHENYTOIN 125 MG/5 ML ORAL SUSP PO SCH (09:35)
[2018-03-28 15:03] VITALS: BP 105/57
== END 2018-03-28 16:59 | disposition home or self-care (01) | DRG 395 ==
LOC: ED 01:46 → INTOOBSV 02:42 → EDIP 02:42 → OBSVTOIN 02:42 → 3NE 03:14
PROVIDERS: ADMIT Hospitalist; ATTEND Hospitalist
PROC: 0DH63UZ Insertion of Feeding Device into Stomach, Percutaneous Approach (ICD-10-PCS; principal; 2018-03-25)
PROC: 0T9B70Z Drainage of Bladder with Drainage Device, Via Natural or Artificial Opening (ICD-10-PCS; 2018-03-27)
DX: K94.29 Other complications of gastrostomy (principal); D47.3 Essential (hemorrhagic) thrombocythemia; D63.8 Anemia in other chronic diseases classified elsewhere; D72.829 Elevated white blood cell count, unspecified; E11.9 Type 2 diabetes mellitus without complications; E86.0 Dehydration; G80.9 Cerebral palsy, unspecified; G40.909 Epilepsy, unspecified, not intractable, without status epilepticus; R62.50 Unspecified lack of expected normal physiological development in childhood; Y83.8 Other surgical procedures as the cause of abnormal reaction of the patient, or of later complication, without mention of misadventure at the time of the procedure; Y92.89 Other specified places as the place of occurrence of the external cause
CPT/HCPCS: 36415; 49440; 71045; 80048; 81003; 82040; 85025; 87040; 99156; 99157; C1725; J2250; J3010; Q9966; C1729; C1769; C1894; G0378; J2310; J3480; J7030

== ENCOUNTER 2019-05-04 04:45 | Emergency (ER) | payer MEDICAID, OTHER ==
[~2019-05-04] VITALS: Ht 172.7 cm; Wt 42.6 kg
--- NOTE | 2019-05-04 04:48 | NUR ---
Patient sent in from [facility] after removing 18 swedish peg tube. 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
--- NOTE | 2019-05-04 04:53 | NUR ---
HOUSE SUP NOTIFIED FOR SITTER, UNABLE TO PROVIDE. HOSPICE ADMINISTRATOR TO BE SITTER.
--- NOTE | 2019-05-04 04:58 | NUR ---
THIS IS A 38 Y/O MALE THAT ARRIVES FROM [place] AFTER REMOVING HIS PEG TUBE. PT HAS DEVELOPMENTAL DELAY CAUSING HIM TO ACCIDENTLY PULL HIS PEG TUBE. PT HAS NO S/SX OF TRUAMA.
--- NOTE | 2019-05-04 05:34 | NUR ---
GALVIN CATH INSERTED TO PEG TUBE STOMA TO KEEP PATENT, INSERTED BY MD ESPARZA. JONATHAN JOHN AT BEDSIDE. AWAITING FURTHER ORDERS. SOFT MEDICAL RESTRAINTS PLACED ON PT TO PREVENT DISLODGEMENT. KERRY ALEXIS AT BEDSIDE FOR PT SAFETY.
--- NOTE | 2019-05-04 05:57 | NUR ---
PT MOVED TO TR1, CLOSER TO NURSES STATION FOR OBSERVATION. CONT WITH SOFT RESTRAINTS IN PLACE, TO DETER PULLING/REMOVAL OF TEMP GASTRIC TUBE. AUTO BP AND PULSE OX IN PLACE. CONT TO MONITOR.
--- NOTE | 2019-05-04 05:57 | NUR ---
Called [facility] Sup again regarding peg tube and she states that she was unable to make it down to central supply and that central supply should be here now and to call them. Attempted to call central at this time and no one answered. Will try back in a few minutes.
--- NOTE | 2019-05-04 06:49 | NUR ---
REPORT TO JERARDO WILSON. PT DOZING INTERMITTENTLY, AROUSES EASILY. PT CONT IN SOFT RESTRAINTS TO PREVENT REMOVAL OF TEMP GASTRIC TUBE.
--- NOTE | 2019-05-04 07:00 | NUR ---
rec report pt sleeping restraints checked vs in normal limits
--- NOTE | 2019-05-04 08:19 | NUR ---
pt returned from [facility] [address] to be a dc
--- NOTE | 2019-05-04 08:20 | NUR ---
Enedelia hayes in [facility] - 05/04/19 at 0821 by KYLAH rec report pt sleeping restraints checked vs in normal limits
--- NOTE | 2019-05-04 08:42 | NUR ---
called gave a report to steve Coronado she advised we needed to get authorization from [facility] in admissions called [facility] and got auth
--- NOTE | 2019-05-04 08:52 | NUR ---
THROUGHPUT RN: SPOKE W/ DALILA FROM [facility] WHO STATES SHE WILL TALK W/ GASTROENTEROLOGY PROFESSOR ABOUT PT TRANSPORT FROM [facility] ED TO [facility].
--- NOTE | 2019-05-04 09:29 | NUR ---
REMSA HERE TO PICKUP THE PT PT CLEANED OF URINE PRIOR TRANSPORT AND NEW DIAPER PLACE ON THE PT
[2019-05-04 09:31] VITALS: BP 122/74
== END 2019-05-04 09:33 | disposition home or self-care (01) ==
LOC: ED 05:26
DX: K94.23 Gastrostomy malfunction (principal); I10 Essential (primary) hypertension
CPT/HCPCS: 43762; 76000; 99284; C1726